=== PATIENT | male | born 1955 | race African-American/Black ===

== ENCOUNTER 2024-09-15 11:28 | Inpatient (IN) ==
[2024-09-15 12:11] LABS: Basophils # (auto) 0.06 K/uL (0.00-0.20); Basophils % (auto) 0.6 %; Eosinophils # (auto) 0.07 K/uL (0.00-0.50); Eosinophils % (auto) 0.7 %; Hemoglobin 14.3 g/dl (14.0-18.0); Immature Granulocytes # (auto) 0.04 K/uL (0.01-0.20); Immature Granulocytes % (auto) 0.4 %; Lymphocytes # (auto) 2.48 K/uL (1.20-3.40); Lymphocytes % (auto) 26.2 %; Mean Corpuscular Hemoglobin 27.5 pg (25.0-34.0); Mean Corpuscular Hgb Conc 31.8 g/dL (32.0-36.0); Mean Corpuscular Volume 86.5 fL (80.0-100.0); Mean Platelet Volume 11.3 fL (9.4-12.4); Monocytes # (auto) 0.46 K/uL (0.11-0.59); Monocytes % (auto) 4.9 %; Neutrophils # (auto) 6.35 K/uL (1.40-6.50); Neutrophils % (auto) 67.2 %; Platelet Count 240 K/uL (130-400); RDW Coefficient of Variation 14.5 % (11.5-14.5); RDW Standard Deviation 45.5 fL (36.4-46.3); White Blood Count 9.46 K/ul (4.8-10.8)
--- NOTE | 2024-09-15 12:11 | XRay Report ---
XR chest 1V portable CLINICAL HISTORY: Chest pain, nonspecific COMPARISON STUDY: No previous studies for comparison. FINDINGS: There is moderate elevation of the left hemidiaphragm. No pneumothorax or pleural effusion is present. There is no consolidation. A 2.5 cm left suprahilar nodular density is present. Cardiomed iastinal silhouette is unremarkable. There is an old left 10th rib fracture. IMPRESSION: 1. 2.5 cm left suprahilar nodular density. Nonemergent chest CT is recommended to exclude a pulmonary nodule. 2. No acute cardiopulmonary findings. 3. Moderate elevation of the left hemidiaphragm. ACT 112: Negative or not required by law. Electronically signed by: Sammy Avendano M.D. 09/15/2024 12:09 PM
[2024-09-15 12:28] LABS: Albumin Globulin Ratio 1.2 (0.9-2); Albumin Level 4.3 gm/dl (3.4-5.0); BUN Creatinine Ratio 7.7 (10-20); Bilirubin,Total 0.8 mg/dl (0.2-1.0); Calcium 9.7 mg/dl (8.6-10.3); Creatinine Clr Calc Pharmacy 61.5 ml/min; Globulin 3.7 gm/dl (2.5-4.0); Potassium 4.5 mmol/L (3.5-5.1)
[2024-09-15 12:32] LABS: Troponin I High Sensitivity 23.7 pg/ml (0-20)
[2024-09-15 12:41] LABS: Partial Thromboplastin Time 27 Seconds (21-31); Prothrombin Time 10.8 Seconds (9.0-12.0)
[2024-09-15] MEDS: ASPIRIN CHEW 324 MG PO STA (14:03)
[2024-09-15] MEDS: FAMOTIDINE 20MG IV PUSH 20 MG/5 ML SYR IV STA (14:14)
[2024-09-15] MEDS: NITROGLYCERIN SL 0.4 MG/TAB TAB SL STA (14:14)
--- NOTE | 2024-09-15 14:17 | History & Physical Report ---
<Statement entered by Isael Oakley, - 09/15/24 16:16> I have seen and examined the patient and have discussed the case with the provider above. I have reviewed the advanced practitioner's documentation, and I agree with, and take responsibility for that plan of care. Patient seen and examined while still in the ED. Chest pain has improved with nitroglycerin. Physical exam: Lungs: Clear to auscultation bilaterally CV: S1-S2 Diagnostics reviewed Second troponin significantly increased to 88.5 Personally reviewed EKG, sinus bradycardia, no definitive ST-T wave changes Based on patient's presenting symptoms and significant increase in troponin high suspicion for acute coronary syndrome/non-ST MN. Discussed plan of care as outlined below with BEV Date of Service September 15, 2024 Assessment & Plan (1) Atypical chest pain: (2) Elevated troponin: (3) Elevated blood pressure reading: Plan This is a 68-year-old male who is a current prisoner at [facility]. He reports this morning at 8 AM he was sitting watching TV whenever he developed severe precordial chest pain. Pain was initially 10 out of 10. He described it as, "an elephant on my chest." He denied any other associated symptoms including diaphoresis, shortness of breath, palpitations, nausea, vomiting, lightheadedness or dizziness. He denies ever feeling something similar in the past. Nothing seem to make the pain worse including deep breathing, lying down or leaning forward or touch. He denies any recent heavy lifting. He typically walks 2 miles daily on a flat surface. He denies developing any substernal chest pain or shortness of breath with this. He denies any history of HTN, HLD, T2DM or known family history of CAD. He is unsure of his family's past medical history. Atypical Chest Pain Elevated troponin admit to PCU for ACS r/o pt appears comfortable but still reports pain 4/10, not reproducible so doubt MSK ECG w/o ischemic change cycle troponins, obtain resting echo, a1c lipid panel pt denies hx of HTN/HLD at baseline, but will trend blood pressure give NTG x 1 now, will also give pepcid 20mg x 1 and continue BID to r/o GI etiology sx are not affected with meals, he had a muffin for breakfast and BBQ chips for dinner last evening Full dose asa given in ED Sx resolved after 1 NTG; however 2-hr trop increased to 288 pg/ml Start IV heparin and consult cardiology Abnormal CXR:2.5 cm left suprahilar nodular density. Nonemergent chest CT is recommended to exclude a pulmonary nodule. will obtain CT Chest DVT ppx: SCDS For now, if to remain hospitalized consider chemical ppx FULL CODE PCP: [facility] Dispo: admit to tele Pt was seen and examined in collaboration with Dr. Oakley, please see addendum I spent a total of 60 minutes reviewing notes, outpatient records, labs, medication, coordinating, documenting and providing care for this patient excluding time spent in the performance of separately billed services. History of Present Illness Chief Complaint: chest pain since 8am. Primary Care Provider: MATT [facility] This is a 68-year-old male who is a current prisoner at [facility]. He reports this morning at 8 AM he was sitting watching TV whenever he developed severe precordial chest pain. Pain was initially 10 out of 10. He described it as, "an elephant on my chest." He denied any other associated symptoms including diaphoresis, shortness of breath, palpitations, nausea, vomiting, lightheadedness or dizziness. He denies ever feeling something similar in the past. Nothing seem to make the pain worse including deep breathing, lying down or leaning forward or touch. He denies any recent heavy lifting. He typically walks 2 miles daily on a flat surface. He denies developing any substernal chest pain or shortness of breath with this. He denies any history of HTN, HLD, T2DM or known family history of CAD. He is unsure of his family's past medical history. He denies any recent illness, fever, chills, sweats or change in his bowel or urinary habits. He denies ever having a prior history of GERD. He has a prior hx of alcohol use and cocaine use in the 80s. In ED patient remained hemodynamically stable. He reports his chest pain has significantly improved and is currently a 4 out of 10. His CBC and CMP was generally unremarkable. His initial troponin is 23.7. His EKG was without acute ischemic change. He was ordered full dose aspirin to be given in ED. Allergies Allergy/AdvReac Type Severity Reaction Status Date / Time No Known Allergies Allergy Verified 11/01/22 07:58 Past Med/Surg History Problem List (Updated 09/15/24 @ 14:14 by Susan Watkins PA-C) Elevated blood pressure reading Elevated troponin Atypical chest pain Medical History Hyperlipidemia no meds per transferring documentation Hx of conjunctivitis Surgical History History of right cataract extraction Social History Smoking Status: Never smoker Second Hand Exposure: No; Do You Dip or Chew Tobacco: No (MATT [facility]); Hx Alcohol Use: Yes Hx Substance Use: Yes Last Used Substance Other:: many years Preferred Language: Vietnamese Communication Ability: Effective Communication Ability Comment: MATT [facility] inmate [facility] Director Required: No Beliefs That Will Affect Care: None Current Living Situation: Other Current Living Situation Comment: M[facility] Rodriguez Feels Safe at Home: Yes Assistive Devices: Glasses Review of Systems Review of Systems: All systems reviewed & are unremarkable except as noted in HPI & below Physical Exam Physical Exam: Constitutional: WD/WN, vitals as above, NAD, sitting up in bed, pleasant, conversing easily Head: Normocephalic, Atraumatic Eyes: PERRL, conjunctivae normal, anicteric sclerae ENMT: external ear and nose normal, oropharynx normal Neck: trachea midline, no thyromegaly normal visual inspection Respiratory: normal respiratory effort, lungs clear to auscultation, no wheeze, rales, rhonchi. Normal insp/exp effort, no accessory muscle use Cardiovascular: RRR, no murmur, no edema Vessels: no JVD or carotid bruit Chest: normal inspection of chest Abdomen: normal bowel sounds, soft, nontender, no hepatosplenomegaly Musculoskeletal: no cyanosis or clubbing, extremities motor strength 5/5 Skin: no rashes, warm and dry normal turgor Neurologic: PERRL, EOMI, accommodation nl, no face palsy, no dysarthria CN's II-XI intact bilaterally and moves all extremities Psychiatric: A+Ox3, euthymic affect Results & Data Results & Data Vital Signs (Past 12 Hours) Vital Signs Temp Pulse Pulse Resp BP BP Pulse Ox 09/15/24 14:03 67 19 141/84 H 98 09/15/24 12:23 97 09/15/24 12:23 58 L 18 135/86 96 09/15/24 11:38 36.8 C 74 20 156/95 H 98 O2 Del Method 09/15/24 14:03 Room Air 09/15/24 12:23 Room Air 09/15/24 12:23 Room Air 09/15/24 11:38 Room Air Laboratory Results I have independently reviewed and interpreted patient's admitting labs including CBC, CMP, trop, lipase, covid Diagnostic Findings Chest X-Ray 09/15/24 11:51 XR chest 1V portable CLINICAL HISTORY: Chest pain, nonspecific COMPARISON STUDY: No previous studies for comparison. FINDINGS: There is moderate elevation of the left hemidiaphragm. No pneumothorax or pleural effusion is present. There is no consolidation. A 2.5 cm left suprahilar nodular density is present. Cardiomediastinal silhouette is unremarkable. There is an old left 10th rib fracture. IMPRESSION: 1. 2.5 cm left suprahilar nodular density. Nonemergent chest CT is recommended to exclude a pulmonary nodule. 2. No acute cardiopulmonary findings. 3. Moderate elevation of the left hemidiaphragm. ACT 112: Negative or not required by law. Electronically signed by: Sammy Avendano M.D. 09/15/2024 12:09 PM Medications Administered Medication List Discontinued Medications Aspirin (Aspirin Chew 324 Mg) 324 mg PO NOW STA Stop: 09/15/24 13:44 Last Admin: 09/15/24 14:03 Dose: 324 mg Documented By: GGG ECG Additional Comments: I have independently reviewed and interpreted patient's admitting EKG which rev ealed: 65 bpm NSR qtc 455ms, no st or t wave change COVID-19 Results Results COVID-19 Adm Lab Results: RBC 5.20 M/uL (4.70-6.10) 09/15/24 WBC 9.46 K/ul (4.8-10.8) 09/15/24 Hgb 14.3 g/dl (14.0-18.0) 09/15/24 Hct 45.0 % (42.0-52.0) 09/15/24 Plt Count 240 K/uL (130-400) 09/15/24 Neutrophils (%) (Auto) 67.2 % 09/15/24 Lymphocytes (%) (Auto) 26.2 % 09/15/24 Monocytes # (Auto) 0.46 K/uL (0.11-0.59) 09/15/24 Eosinophils # (Auto) 0.07 K/uL (0.00-0.50) 09/15/24 Immature Granulocyte % (Auto) 0.4 % 09/15/24 Neutrophils # (Auto) 6.35 K/uL (1.40-6.50) 09/15/24 Lymphocytes # (Auto) 2.48 K/uL (1.20-3.40) 09/15/24 Monocytes # (Auto) 0.46 K/uL (0.11-0.59) 09/15/24 Eosinophils # (Auto) 0.07 K/uL (0.00-0.50) 09/15/24 Basophils # (Auto) 0.06 K/uL (0.00-0.20) 09/15/24 Immature Granulocyte # (Auto) 0.04 K/uL (0.01-0.20) 4 Na 139 mmol/L (136-145) 09/15/24 K 4.5 mmol/L (3.5-5.1) 09/15/24 Cl 106 mmol/L (98-107) 09/15/24 CO2 28 mmol/L (21-32) 09/15/24 Anion Gap 5 (3-11) 09/15/24 BUN 10 mg/dl (6-23) 09/15/24 Creatinine 1.30 mg/dl (0.6-1.4) 09/15/24 BUN/Creatinine Ratio 7.7 (10-20) L 09/15/24 Glucose Level 98 mg/dl (70-99(Fasting)) 09/15/24 Ca 9.7 mg/dl (8.6-10.3) 09/15/24 Total Bilirubin 0.8 mg/dl (0.2-1.0) 09/15/24 AST/SGOT 15 U/L (13-39) 09/15/24 ALT/SGPT 6 U/L (7-52) L 09/15/24 Alkaline Phosphatase 43 U/L (34-104) 09/15/24 Total Protein 8.0 gm/dl (6.0-8.3) 09/15/24 Albumin 4.3 gm/dl (3.4-5.0) 09/15/24 Globulin 3.7 gm/dl (2.5-4.0) 09/15/24 Albumin/Globulin Ratio 1.2 (0.9-2) 09/15/24 PTT 27 Seconds (21-31) 09/15/24 INR 1.0 (0.9-1.1) 09/15/24 SARS-CoV-2, RNA, NAAT NEGATIVE (NEGATIVE) 09/15/24 Chest X-Ray 09/15/24 Code Status & VTE Plan Code Status FULL CODE VTE Prophylaxis Plan VTE Prophylaxis will be ordered: No
[2024-09-15] MEDS ORDERED: ONDANSETRON INJ 2 MG/ML 2 ML VIAL IV PRN (14:43)
[2024-09-15] MEDS ORDERED: ACETAMINOPHEN 325 MG TAB PO PRN (14:43)
[2024-09-15] MEDS ORDERED: ALUMINUM/MAGNESIUM SUSP 30 ML UDC PO PRN (14:43)
--- NOTE | 2024-09-15 15:07 | Electrocardiogram Report ---
Test Reason : Blood Pressure : */* mmHG Vent. Rate : 65 BPM Atrial Rate : 65 BPM P-R Int : 130 ms QRS Dur : 80 ms QT Int : 428 ms P-R-T Axes : 72 39 63 degrees QTcB Int : 445 ms Normal sinus rhythm Normal ECG No previous ECGs available Confirmed by Moo Cortez ([id number]) on 09/15/2024 3:07:16 PM Referred By: [facility] Confirmed By: Moo Cortez
--- NOTE | 2024-09-15 15:26 | Emergency Department Note ---
Impression & Plan NSTEMI (non-ST elevated myocardial infarction), Elevated troponin, Chest pain due to CAD ED Provider Note NAME: MAME GRAJEDA MCNEAR AGE: 68 SEX: M : 1955 ARRIVES VIA: Walk-In INFORMANT: Patient, ED PROVIDER(S): Jacob Suresh MD CHIEF COMPLAINT: Chest pain HPI: This a 68-year-old male presented for left-sided chest pain. Patient notes that pain began this morning feels like a pressure-like sensation in his midsternal/left side of his chest. Denies any shortness of breath, radiation of pain. No nausea, vomiting, diarrhea. Never happened before. No history of CAD or stenting. ROS: See above HPI for pertinent positives & negatives. A total of 10 systems reviewed and were otherwise negative. PAST MEDICAL HISTORY: See Below PAST SURGICAL HISTORY: See Below FAMILY HISTORY: See Below SOCIAL HISTORY: See Below HOME MEDICATIONS: See Below ALLERGIES: See Below VITALS: See Below PHYSICAL EXAMINATION: General: resting comfortably in no acute distress Head: Normocephalic and atraumatic Eyes: Normal inspection, extraocular muscles intact Ear, nose, throat: Normal external exam Neck: Normal range of motion Respiratory: lungs clear to auscultation bilaterally Cardiovascular: Regular rate/rhythm, no murmur GI: soft, nontender, no guarding or rebound Extremities: nontender, moves all extremities Neuro: The patient awake and alert, appropriately conversive, no focal deficits, symmetric faces Skin: Warm, dry, and intact MEDICAL DECISION MAKING: This is a 68-year-old male presenting for left-sided chest pain. Patient has persistent left-sided chest pain, currently still coming on. Minor at this time we will order aspirin. -ECG independently interpreted by me with normal sinus rhythm, rate of 65, normal axis, normal AK, normal QRS, normal QTc, no ST segment elevations consistent with STEMI criteria -Patient initial troponin is currently elevated in the low 20s. Due to this elevated troponin, current chest pain, will admit for further cardiac rule out. -Discussed with Miranda for admission. -Patient second troponin does come back elevated at 288. Let admitting team now. Differential diagnosis: ACS, PE, NSTEMI Independent History obtained from: [facility] guards Diagnostics interpreted by me: ECG: See above Cardiac Monitoring: An order was placed for continuous cardiac monitoring. The monitor shows a rate of 57 sinus rhythm. Past Med/Surg History Problem List (Updated 09/15/24 @ 19:00 by Jacob Suresh MD) Chest pain due to CAD (Acute) NSTEMI (non-ST elevated myocardial infarction) (Acute) Precordial chest pain Elevated blood pressure reading Elevated troponin (Acute) Atypical chest pain Medical History Hyperlipidemia no meds per transferring documentation Hx of conjunctivitis Surgical History History of right cataract extraction Social History Smoking Status: Never smoker Second Hand Exposure: No; Do You Dip or Chew Tobacco: No ([facility]); Hx Alcohol Use: Yes Hx Substance Use: Yes Last Used Substance Other:: many years Preferred Language: Chadian Communication Ability: Effective Communication Ability Comment: MATT [facility] inmate 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: No Beliefs That Will Affect Care: None Current Living Situation: Other Current Living Situation Comment: [facility] Other Information That Helps Us Care for You: No Feels Safe at Home: Yes Safety Concerns: Feels Safe At This Time Assistive Devices: Glasses Allergies Allergies Allergy/AdvReac Type Severity Reaction Status Date / Time No Known Allergies Allergy Verified 08/11/22 07:58 Home Meds Home Medications Medication Instructions Recorded Confirmed No Known Home Medications 09/15/24 09/15/24 Results & Data (ED) Vital Signs Vital Signs - 24 hr 09/15/24 11:38 09/15/24 12:23 09/15/24 12:23 Temperature 36.8 C Temperature Source Temporal Artery Scan Pulse Rate 74 Pulse Rate [Apical] 58 L Pulse Rhythm [Apical] Regular Pulse Strength [Apical] Normal Respiratory Rate 20 18 Respiratory Effort / Characteristics Non-Labored Spontaneous Non-Labored Spontaneous Respiratory Depth Normal Normal Respiratory Pattern Regular Regular Blood Pressure 156/95 H Blood Pressure [Left Arm] 135/86 Blood Pressure Mean 115 Blood Pressure Mean [Left Arm] 102 Pulse Oximetry 98 96 97 Oxygen Delivery Method Room Air Room Air Room Air Sepsis Recent Fever Within 48 Hours No Sepsis New/Unexplained Change in Mental Status No Sepsis Action Taken by Nursing No Action Required 09/15/24 14:03 Temperature Temperature Source Pulse Rate Pulse Rate [Apical] 67 Pulse Rhythm [Apical] Regular Pulse Strength [Apical] Normal Respiratory Rate 19 Respiratory Effort / Characteristics Non-Labored Spontaneous Respiratory Depth Normal Respiratory Pattern Regular Blood Pressure Blood Pressure [Left Arm] 141/84 H Blood Pressure Mean Blood Pressure Mean [Left Arm] 103 Pulse Oximetry 98 Oxygen Delivery Method Room Air Sepsis Recent Fever Within 48 Hours Sepsis New/Unexplained Change in Mental Status Sepsis Action Taken by Nursing Laboratory Data 09/15/24 11:52 09/15/24 11:52 Lab Results 09/15/24 09/15/24 09/15/24 Range/Units 11:52 11:56 14:05 WBC 9.46 (4.8-10.8) K/ul RBC 5.20 (4.70-6.10) M/uL Hgb 14.3 (14.0-18.0) g/dl Hct 45.0 (42.0-52.0) % MCV 86.5 (80.0-100.0) fL MCH 27.5 (25.0-34.0) pg MCHC 31.8 L (32.0-36.0) g/dL RDW Std Deviation 45.5 (36.4-46.3) fL RDW Coeff of Kirill 14.5 (11.5-14.5) % Plt Count 240 (130-400) K/uL MPV 11.3 (9.4-12.4) fL Immature Gran % (Auto) 0.4 % Neut % (Auto) 67.2 % Lymph % (Auto) 26.2 % [place] % (Auto) 4.9 % Eos % (Auto) 0.7 % Baso % (Auto) 0.6 % Neut # (Auto) 6.35 (1.40-6.50) K/uL Lymph # (Auto) 2.48 (1.20-3.40) K/uL [place] # (Auto) 0.46 (0.11-0.59) K/uL Eos # (Auto) 0.07 (0.00-0.50) K/uL Baso # (Auto) 0.06 (0.00-0.20) K/uL Immature Gran # (Auto) 0.04 (0.01-0.20) K/uL PT 10.8 (9.0-12.0) Seconds INR 1.0 (0.9-1.1) APTT 27 (21-31) Seconds PTT Ratio 1.0 Sodium 139 (136-145) mmol/L Potassium 4.5 (3.5-5.1) mmol/L Chloride 106 (98-107) mmol/L Carbon Dioxide 28 (21-32) mmol/L Anion Gap 5 (3-11) BUN 10 (6-23) mg/dl Creatinine 1.30 (0.6-1.4) mg/dl Est Cr Clr Drug Dosing 61.5 ml/min eGFR 59.84 BUN/Creatinine Ratio 7.7 L (10-20) Glucose 98 (70-99(Fasting)) mg/dl Calcium 9.7 (8.6-10.3) mg/dl Total Bilirubin 0.8 (0.2-1.0) mg/dl AST 15 (13-39) U/L ALT 6 L (7-52) U/L Alkaline Phosphatase 43 (34-104) U/L Troponin I High Sens 23.7 H 288.5 H* D (0-20) pg/ml Total Protein 8.0 (6.0-8.3) gm/dl Albumin 4.3 (3.4-5.0) gm/dl Globulin 3.7 (2.5-4.0) gm/dl Albumin/Globulin Ratio 1.2 (0.9-2) Lipase 31 (11-82) U/L SARS-CoV-2, RNA, NAAT NEGATIVE (NEGATIVE) Administered Medications Heparin Sodium/Dextrose (Heparin Sodium/Dextrose) 25,000 units in 500 mls @ 30 mls/hr IV .[id number] [facility]; Protocol Stop: 10/15/24 15:44 Last Admin: 09/15/24 16:19 Dose: 1,500 units/hr, 30 mls/hr Documented By: CORINNE Co-signed By: ELVIS Discontinued Medications Aspirin (Aspirin Chew 324 Mg) 324 mg PO NOW STA Stop: 09/15/24 13:44 Last Admin: 09/15/24 14:03 Dose: 324 mg Documented By: ELIZABETH Heparin Sodium (Porcine) (Heparin Sod (Porcine) 1000 Unit/Ml) 7,000 units IV 1600 ONE Stop: 09/15/24 16:01 Last Admin: 09/15/24 16:19 Dose: 7,000 units Documented By: CORINNE Co-signed By: ELVIS Heparin Sodium/Dextrose (Heparin Iv Adult Wt-Based Standard W/ Initial Bolus Protocol) 1 each IV NOW STA; Protocol Stop: 09/15/24 14:54 Last Admin: 09/15/24 16:25 Dose: 1 each Documented By: CORINNE Famotidine (Pepcid 20mg Iv Push) 20 mg in 5 mls @ 2.5 mls/min IV NOW STA Stop: 09/15/24 14:04 Last Admin: 09/15/24 14:14 Dose: 2.5 mls/min Documented By: ELIZABETH Nitroglycerin (Nitroglycerin Sl 0.4 Mg/Tab Tab) 0.4 mg SL NOW STA Stop: 09/15/24 14:04 Last Admin: 09/15/24 14:14 Dose: 0.4 mg Documented By: ELIZABETH Imaging Data Radiologist's Impression: Chest X-Ray 09/15/24 11:51 XR chest 1V portable CLINICAL HISTORY: Chest pain, nonspecific COMPARISON STUDY: No previous studies for comparison. FINDINGS: There is moderate elevation of the left hemidiaphragm. No pneumothorax or pleural effusion is present. There is no consolidation. A 2.5 cm left suprahilar nodular density is present. Cardiomediastinal silhouette is unremarkable. There is an old left 10th rib fracture. IMPRESSION: 1. 2.5 cm left suprahilar nodular density. Nonemergent chest CT is recommended to exclude a pulmonary nodule. 2. No acute cardiopulmonary findings. 3. Moderate elevation of the left hemidiaphragm. ACT 112: Negative or not required by law. Electronically signed by: Sammy Avendano M.D. 09/15/2024 12:09 PM Discharge Plan Visit Data Chief Complaint: Hypertension Stated Complaint: CHEST TIGHTNESS, HYPERTENSION ED Provider: Jacob Suresh Discharge Problem: NSTEMI (non-ST elevated myocardial infarction), Elevated troponin, Chest pain due to CAD Patient Disposition: Admitted As Inpatient Discharge Instructions Interventions: ED Discharge Assessment Last Done: 09/15/24 14:23
--- NOTE | 2024-09-15 15:56 | Cardiology Consultation ---
Date of Consultation September 15, 2024 Assessment & Plan (1) Elevated troponin: (2) Precordial chest pain: Plan 68-year-old male without prior history of cardiac disease who developed chest pain substernally at rest. Initial EKG normal elevated troponins consistent with non-ST segment elevation myocardial infarction. Agree with anticoagulation with heparin, aspirin. Maintain telemetry The echocardiogram to be formally reviewed but on preliminary review normal wall motion. Further recommendations as clinical course progresses History of Present Illness Reason for Consultation: Chest pain, elevated Troponin [facility] Attending Physician: Isael Oakley DO History of Present Illness Patient is a 68-year-old male brought few half-way via prisoner who this morning while sitting watching television developed substernal chest pain severe, 10 out of 10 "elephant on my chest. Symptoms initially improved but still maintained until ER presentation. Symptoms relieved with sublingual nitroglycerin. No prior history of hypertension, diabetes mellitus, angina, congestive heart failure. No history of valvular heart disease. Usually very physically active walking 2 miles per day without difficulty. No recent fevers chills infections. No history of bleeding issues appetite and weight are stable. Not previously on medications or aspirin Currently pain-free Initial EKG normal Second troponin elevated Allergies Allergy/AdvReac Type Severity Reaction Status Date / Time No Known Allergies Allergy Verified 08/11/22 07:58 Patient History Medical History Hyperlipidemia no meds per transferring documentation Hx of conjunctivitis Surgical History History of right cataract extraction Social History Smoking Status: Never smoker Second Hand Exposure: No; Do You Dip or Chew Tobacco: No (MATT Rodriguez); Hx Alcohol Use: Yes Hx Substance Use: Yes Last Used Substance Other:: many years Preferred Language: Somali Communication Ability: Effective Communication Ability Comment: MATT sinclair inmate Associate Team Physician Required: No Beliefs That Will Affect Care: None Current Living Situation: Other Current Living Situation Comment: MATT Rodriguez Other Information That Helps Us Care for You: No Feels Safe at Home: Yes Safety Concerns: Feels Safe At This Time Assistive Devices: Glasses Review of Systems Review of Systems: All systems reviewed & are unremarkable except as noted in HPI & below Physical Exam Constitutional: WD/WN, vitals as above no acute distress Eyes: PERRL, conjunctivae normal, anicteric sclerae ENMT: external ear and nose normal, oropharynx normal Neck: trachea midline, no thyromegaly Respiratory: normal respiratory effort, lungs clear to auscultation Cardiovascular: RRR, no murmur, no edema Vessels: radial pulses present; no JVD Extremities: no edema Gastrointestinal (Abdomen): normal bowel sounds, soft, nontender, no hepatosplenomegaly Musculoskeletal: no cyanosis or clubbing, extremities motor strength 5/5 Results & Data Vital Signs (Past 12 Hours) Vital Signs Temp Pulse Pulse Resp BP BP BP 09/15/24 14:44 36.7 C 57 L 16 137/78 09/15/24 14:22 72 09/15/24 14:03 67 19 141/84 H 09/15/24 12:23 09/15/24 12:23 58 L 18 135/86 09/15/24 11:38 36.8 C 74 20 156/95 H Pulse Ox O2 Del Method 09/15/24 14:44 97 Room Air 09/15/24 14:22 09/15/24 14:03 98 Room Air 09/15/24 12:23 97 Room Air 09/15/24 12:23 96 Room Air 09/15/24 11:38 98 Room Air Laboratory Results Laboratory Results - last 24 hr 09/15/24 09/15/24 09/15/24 11:52 11:56 14:05 WBC 9.46 RBC 5.20 Hgb 14.3 Hct 45.0 MCV 86.5 MCH 27.5 MCHC 31.8 L RDW Std Deviation 45.5 RDW Coeff of Kirill 14.5 Plt Count 240 MPV 11.3 Immature Gran % (Auto) 0.4 Neut % (Auto) 67.2 Lymph % (Auto) 26.2 [place] % (Auto) 4.9 Eos % (Auto) 0.7 Baso % (Auto) 0.6 Neut # (Auto) 6.35 Lymph # (Auto) 2.48 [place] # (Auto) 0.46 Eos # (Auto) 0.07 Baso # (Auto) 0.06 Immature Gran # (Auto) 0.04 PT 10.8 INR 1.0 APTT 27 PTT Ratio 1.0 Sodium 139 Potassium 4.5 Chloride 106 Carbon Dioxide 28 Anion Gap 5 BUN 10 Creatinine 1.30 Est Cr Clr Drug Dosing 61.5 eGFR 59.84 BUN/Creatinine Ratio 7.7 L Glucose 98 Calcium 9.7 Total Bilirubin 0.8 AST 15 ALT 6 L Alkaline Phosphatase 43 Troponin I High Sens 23.7 H 288.5 H* D Total Protein 8.0 Albumin 4.3 Globulin 3.7 Albumin/Globulin Ratio 1.2 Lipase 31 Nasal Screen MRSA (PCR) SARS-CoV-2, RNA, NAAT NEGATIVE 09/15/24 15:50 WBC RBC Hgb Hct MCV MCH MCHC RDW Std Deviation RDW Coeff of Kirill Plt Count MPV Immature Gran % (Auto) Neut % (Auto) Lymph % (Auto) [place] % (Auto) Eos % (Auto) Baso % (Auto) Neut # (Auto) Lymph # (Auto) [place] # (Auto) Eos # (Auto) Baso # (Auto) Immature Gran # (Auto) PT INR APTT PTT Ratio Sodium Potassium Chloride Carbon Dioxide Anion Gap BUN Creatinine Est Cr Clr Drug Dosing eGFR BUN/Creatinine Ratio Glucose Calcium Total Bilirubin AST ALT Alkaline Phosphatase Troponin I High Sens Total Protein Albumin Globulin Albumin/Globulin Ratio Lipase Nasal Screen MRSA (PCR) Pending SARS-CoV-2, RNA, NAAT Diagnostic Findings Chest x-ray and CT scan of the chest elevated left hemidiaphragm, coronary calcifications notable
--- NOTE | 2024-09-15 15:58 | CT Scan Report ---
CT OF THE CHEST WITHOUT IV CONTRAST CLINICAL HISTORY: Chest pain. COMPARISON STUDY: Chest radiograph performed earlier today. CT DOSE: 499.66 mGy.cm TECHNIQUE: Axial images of the chest were obtained without IV contrast. Images were reviewed in the axial, sagittal, and coronal planes. IV contrast was not administered for this examination. Automat ed exposure control was utilized for the study. A dose lowering technique was utilized adhering to t he principles of ALARA. FINDINGS: No enlarged axillary, mediastinal or hilar lymph nodes are present. The size of the heart is normal. There is no pericardial effusion. There is moderate coronary artery calcification. The lef t suprahilar abnormality on chest radiograph performed earlier today was artifactual. This is due to pulmonary vessels. Moderate elevation of the left hemidiaphragm is noted. Associated subpleural left lower lobe opacity represents atelectasis. No consolidation is present to suggest pneumonia. There ar e no pulmonary nodules. There is no pneumothorax or pleural effusion. No fractures are identified wit hin the bony thorax. Visualized portions of the upper abdomen are unremarkable on unenhanced exam. IMPRESSION: 1. No acute intrathoracic findings. 2. Moderate elevation of the left hemidiaphragm. Associated subpleural left lower lobe opacity repres ents atelectasis. 3. The left suprahilar abnormality on chest radiograph performed earlier today was artifactual. ACT 112: Negative or not required by law. Electronically signed by: Sammy Avendano M.D. 09/15/2024 3:57 PM
[2024-09-15] MEDS ORDERED: HEPARIN SOD (PORCINE) 1000 UNIT/ML IV ONE (16:00)
[2024-09-15] MEDS: HEPARIN SODIUM/DEXTROSE 25,000 UNITS/500 ML BAG IV SCH (16:19)
[2024-09-15] MEDS: HEPARIN SOD (PORCINE) 1000 UNIT/ML IV ONE (16:19)
[2024-09-15] MEDS: Heparin IV Adult Wt-Based Standard w/ INITIAL Bolus Protocol IV STA (16:25)
[2024-09-15] MEDS ORDERED: MELATONIN 3 MG TAB PO PRN (21:00)
[2024-09-15] MEDS: NITROGLYCERIN SL 0.4 MG/TAB TAB ONE (21:18)
[2024-09-15] MEDS: FAMOTIDINE 20 MG TAB PO SCH (21:25)
[2024-09-15 23:37] LABS: ANTI-Xa, UFH(UnfractionatedHep 1.49 IU/ml (0.3-0.7)
[2024-09-16 01:46] LABS: Hematocrit (blood only) 41.1 % (42.0-52.0); Hemoglobin 13.2 g/dl (14.0-18.0); Mean Corpuscular Hemoglobin 27.8 pg (25.0-34.0); Mean Corpuscular Hgb Conc 32.1 g/dL (32.0-36.0); Mean Corpuscular Volume 86.7 fL (80.0-100.0); Mean Platelet Volume 11.3 fL (9.4-12.4); Platelet Count 203 K/uL (130-400); RDW Coefficient of Variation 14.5 % (11.5-14.5); RDW Standard Deviation 45.9 fL (36.4-46.3); Red Blood Count 4.74 M/uL (4.70-6.10); White Blood Count 9.17 K/ul (4.8-10.8)
[2024-09-16 02:05] LABS: BUN Creatinine Ratio 10.2 (10-20); Calcium 9.1 mg/dl (8.6-10.3); Chol HDL Ratio 4.2 (0-5); Creatinine Clr Calc Pharmacy 58.3 ml/min; Potassium 4.6 mmol/L (3.5-5.1)
[2024-09-16 02:19] LABS: ANTI-Xa, UFH(UnfractionatedHep 0.99 IU/ml (0.3-0.7)
[2024-09-16 03:03] LABS: ANTI-Xa, UFH(UnfractionatedHep 0.68 IU/ml (0.3-0.7)
--- NOTE | 2024-09-16 07:07 | Hospitalist Progress Note ---
Date of Service September 16, 2024 Assessment & Plan (1) Atypical chest pain: (2) Elevated troponin: (3) Elevated blood pressure reading: Plan Mr. Zapata is a 68-year-old male who is a current prisoner at [facility] with reportedly no medical history who is admitted for severe chest pain that developed the morning of 09/15. Initial troponin at 23.7, however, uptrending to now 5186.4 as of this am. Repeat downtrending Patient on IV heparin at this time. Patient with recurrence of pain: repeat labs ordered EKG stable, patient very calm, nonanxious, resting in bed--exam not congruent with reported discomfort If troponin increasing will call Heart Alert; however, without increasing Troponin, stable EKG/vitals, and current clinical exam, will continue conservative measures. #NSTEMI #Atypical Chest Pain admit to PCU for ACS r/o pt appears comfortable but still reports pain 4/10, not reproducible so doubt MSK ECG w/o ischemic change ECHO with EF 60-65%, no RWMA A1C 5.7% pt denies hx of HTN/HLD at baseline, but will trend blood pressure give NTG x 1 now, will also give pepcid 20mg x 1 and continue BID to r/o GI etiology sx are not affected with meals, he had a muffin for breakfast and BBQ chips for dinner last evening Full dose asa given in ED Sx resolved after 1 NTG; however 2-hr trop increased to 288 pg/ml Continue heparin Contuinue ASA Continue nitro paste q6h LDL 109, Total 168,continue atorvastatin 40mg daily #Prediabetes A1C 5.7% plan to certified alcohol and drug counselor on healthy dietary choices #Abnormal CXR:2.5 cm left suprahilar nodular density. Nonemergent chest CT is recommended to exclude a pulmonary nodule: CXR was artifact, no nodules present DVT ppx: SCDS For now, if to remain hospitalized consider chemical ppx FULL CODE PCP: [facility] Dispo: admit to tele Admission and Anticipated Discharge Date Admission Date: September 15, 2024 Subjective Evaluated this am with some chest pain; reevaluated at bedside with chest pain this afternoon---however, sitting calm and upright....though reporting 10/10 no diaphoresis, radiation of symptoms, nausea VS stable, EKG reviewed no changes noted Patient with nitro, denies relief---but again, very calm and resting in bed Physical Exam Constitutional: WD/WN, vitals as above Respiratory: normal respiratory effort, lungs clear to auscultation Cardiovascular: RRR, no murmur, no edema Gastrointestinal (Abdomen): normal bowel sounds, soft, nontender, no hepatosplenomegaly Results & Data Results & Data Vital Signs (Past 12 Hours) Vital Signs Temp Pulse Pulse Resp BP Pulse Ox O2 Del Method 09/16/24 04:25 36.3 C L 51 L 17 107/68 99 Nasal Cannula 09/15/24 23:03 Nasal Cannula 09/15/24 22:51 36.4 C L 46 L 16 128/70 99 Room Air 09/15/24 22:05 121/73 09/15/24 21:54 49 L 09/15/24 21:28 134/75 95 Nasal Cannula 09/15/24 21:21 54 L 136/78 96 Nasal Cannula 09/15/24 21:08 126/71 Room Air 09/15/24 19:32 36.7 C 49 L 18 134/79 97 Room Air O2 Flow Rate 09/16/24 04:25 2 09/15/24 23:03 2 09/15/24 22:51 09/15/24 22:05 09/15/24 21:54 09/15/24 21:28 2 09/15/24 21:21 2 09/15/24 21:08 09/15/24 19:32 Laboratory Results Short CBC 09/15/24 09/16/24 Range/Units 11:52 01:21 WBC 9.46 9.17 (4.8-10.8) K/ul Hgb 14.3 13.2 L (14.0-18.0) g/dl Hct 45.0 41.1 L (42.0-52.0) % Plt Count 240 203 (130-400) K/uL BMP 09/15/24 09/16/24 11:52 01:21 Sodium 139 139 Potassium 4.5 4.6 Chloride 106 107 Carbon Dioxide 28 28 BUN 10 14 Creatinine 1.30 1.37 Glucose 98 101 H Calcium 9.7 9.1 Liver Function 09/15/24 Range/Units 11:52 Total Bilirubin 0.8 (0.2-1.0) mg/dl AST 15 (13-39) U/L ALT 6 L (7-52) U/L Alkaline Phosphatase 43 (34-104) U/L Albumin 4.3 (3.4-5.0) gm/dl Medications Administered Home Medications Medication Instructions Recorded Confirmed Last Taken No Known Home Medications 09/15/24 09/15/24 Unknown Active Medications Generic Name Dose Route Start Last Admin Trade Name Freq PRN Reason Stop Dose Admin Famotidine 20 mg 09/15/24 21:00 09/15/24 21:25 Famotidine 20 Mg Tab PO 10/15/24 20:59 20 mg BID SIMON Administration Heparin Sodium/Dextrose 25,000 units in 500 mls @ 22 mls/hr 09/15/24 15:45 09/16/24 07:01 Heparin Sodium/Dextrose IV 10/15/24 15:44 1,100 units/hr .[id number] SIMON 22 mls/hr Titration Protocol 1,100 UNITS/HR
[2024-09-16 07:09] LABS: Estimated Average Glucose 117 mg/dl; Hemoglobin A1C 5.7 % (4.5-5.6)
[2024-09-16 07:31] LABS: Magnesium 2.1 mg/dl (1.7-2.4)
[2024-09-16 07:45] LABS: Troponin I High Sensitivity 3985.9 pg/ml (0-20)
[2024-09-16] MEDS: ASPIRIN 81 MG ECTAB PO SCH (07:47)
[2024-09-16] MEDS: ATORVASTATIN 40 MG TAB PO SCH (07:47)
--- NOTE | 2024-09-16 08:45 | Electrocardiogram Report ---
Test Reason : Blood Pressure : */* mmHG Vent. Rate : 54 BPM Atrial Rate : 54 BPM P-R Int : 152 ms QRS Dur : 70 ms QT Int : 458 ms P-R-T Axes : 67 44 70 degrees QTcB Int : 434 ms Poor data quality, interpretation may be adversely affected Sinus bradycardia Nonspecific T wave abnormality Anterior leads Abnormal ECG When compared with ECG of 15-Sep-2024 11:46, No significant change was found Confirmed by Alejandro Gillespie ([id number]) on 09/16/2024 8:45:34 AM Referred By: [facility] Confirmed By: Alejandro Gillespie
--- NOTE | 2024-09-16 08:59 | Electrocardiogram Report ---
Test Reason : Blood Pressure : */* mmHG Vent. Rate : 55 BPM Atrial Rate : 55 BPM P-R Int : 142 ms QRS Dur : 78 ms QT Int : 474 ms P-R-T Axes : 73 57 85 degrees QTcB Int : 453 ms Sinus bradycardia Borderline ECG When compared with ECG of 15-Sep-2024 15:51, Nonspecific T wave abnormality Anterior leads no longer present Confirmed by Alejandro Gillespie ([id number]) on 09/16/2024 8:58:51 AM Referred By: [facility] Confirmed By: Alejadnro Gillespie
--- NOTE | 2024-09-16 10:19 | Cardiology Progress Note ---
Date of Service September 16, 2024 Assessment & Plan (1) Elevated troponin: (2) Precordial chest pain: (3) NSTEMI (non-ST elevated myocardial infarction): Plan 68-year-old male without prior history of cardiac disease who developed chest pain substernally at rest. Initial EKG normal elevated troponins consistent with non-ST segment elevation myocardial infarction. Agree with anticoagulation with heparin, aspirin. Maintain telemetry The echocardiogram to be formally reviewed but on preliminary review normal wall motion. Further recommendations as clinical course progresses 09/16/2024 Presentation consistent with non-ST segment elevation myocardial infarction with significant rise in troponins. EKGs without injury pattern. Patient appropriately anticoagulated with IV heparin Beta-sheila contraindicated secondary to resting bradycardia Will add topical nitrates to regimen Plan diagnostic coronary angiography Wednesday morning unless patient develops unstable symptoms. May resume diet in interim Admission and Anticipated Discharge Date Admission Date: September 15, 2024 Subjective Patient was seen and personally examined. Chart, medications, telemetry reviewed. Brief chest discomfort earlier this morning transient. No further sustained chest pain or discomfort. No tachypalpitations dizziness or lightheadedness. No arrhythmias on telemetry. No bleeding issues on anticoagulation. Review of Systems Review of Systems: All systems reviewed & are unremarkable except as noted in Subjective Physical Exam Constitutional: WD/WN, vitals as above no acute distress Eyes: PERRL, conjunctivae normal, anicteric sclerae ENMT: external ear and nose normal, oropharynx normal Neck: trachea midline, no thyromegaly Respiratory: normal respiratory effort, lungs clear to auscultation Cardiovascular: RRR, no murmur, no edema Vessels: radial pulses present; no JVD Extremities: no edema Gastrointestinal (Abdomen): normal bowel sounds, soft, nontender, no hepatosplenomegaly Musculoskeletal: no cyanosis or clubbing, extremities motor strength 5/5 Results & Data Vital Signs (Past 12 Hours) Vital Signs Temp Pulse Pulse Resp BP Pulse Ox O2 Del Method 09/16/24 07:50 36.4 C L 54 L 16 154/90 H 100 Nasal Cannula 09/16/24 07:00 65 09/16/24 04:25 36.3 C L 51 L 17 107/68 99 Nasal Cannula 09/15/24 23:03 Nasal Cannula 09/15/24 22:51 36.4 C L 46 L 16 128/70 99 Room Air O2 Flow Rate 09/16/24 07:50 2 09/16/24 07:00 09/16/24 04:25 2 09/15/24 23:03 2 09/15/24 22:51 Laboratory Results Laboratory Results - last 24 hr 09/15/24 09/15/24 09/15/24 11:52 11:56 14:05 WBC 9.46 RBC 5.20 Hgb 14.3 Hct 45.0 MCV 86.5 MCH 27.5 MCHC 31.8 L RDW Std Deviation 45.5 RDW Coeff of Kirill 14.5 Plt Count 240 MPV 11.3 Immature Gran % (Auto) 0.4 Neut % (Auto) 67.2 Lymph % (Auto) 26.2 [place] % (Auto) 4.9 Eos % (Auto) 0.7 Baso % (Auto) 0.6 Neut # (Auto) 6.35 Lymph # (Auto) 2.48 [place] # (Auto) 0.46 Eos # (Auto) 0.07 Baso # (Auto) 0.06 Immature Gran # (Auto) 0.04 PT 10.8 INR 1.0 APTT 27 PTT Ratio 1.0 Heparin Anti-Xa, Unfract Sodium 139 Potassium 4.5 Chloride 106 Carbon Dioxide 28 Anion Gap 5 BUN 10 Creatinine 1.30 Est Cr Clr Drug Dosing 61.5 eGFR 59.84 BUN/Creatinine Ratio 7.7 L Glucose 98 Estimat Average Glucose Hemoglobin A1c Calcium 9.7 Magnesium Total Bilirubin 0.8 AST 15 ALT 6 L Alkaline Phosphatase 43 Troponin I High Sens 23.7 H 288.5 H* D Total Protein 8.0 Albumin 4.3 Globulin 3.7 Albumin/Globulin Ratio 1.2 Triglycerides Cholesterol LDL Cholesterol, Calc VLDL Cholesterol, Calc HDL Cholesterol Cholesterol/HDL Ratio Lipase 31 Nasal Screen MRSA (PCR) SARS-CoV-2, RNA, NAAT NEGATIVE 09/15/24 09/15/24 09/15/24 15:50 20:05 22:37 WBC RBC Hgb Hct MCV MCH MCHC RDW Std Deviation RDW Coeff of Kirill Plt Count MPV Immature Gran % (Auto) Neut % (Auto) Lymph % (Auto) [place] % (Auto) Eos % (Auto) Baso % (Auto) Neut # (Auto) Lymph # (Auto) [place] # (Auto) Eos # (Auto) Baso # (Auto) Immature Gran # (Auto) PT INR APTT PTT Ratio Heparin Anti-Xa, Unfract 1.49 H* Sodium Potassium Chloride Carbon Dioxide Anion Gap BUN Creatinine Est Cr Clr Drug Dosing eGFR BUN/Creatinine Ratio Glucose Estimat Average Glucose Hemoglobin A1c Calcium Magnesium Total Bilirubin AST ALT Alkaline Phosphatase Troponin I High Sens 3546.8 H* D Total Protein Albumin Globulin Albumin/Globulin Ratio Triglycerides Cholesterol LDL Cholesterol, Calc VLDL Cholesterol, Calc HDL Cholesterol Cholesterol/HDL Ratio Lipase Nasal Screen MRSA (PCR) Negative SARS-CoV-2, RNA, NAAT 09/16/24 09/16/24 09/16/24 01:21 02:27 06:47 WBC 9.17 RBC 4.74 Hgb 13.2 L Hct 41.1 L MCV 86.7 MCH 27.8 MCHC 32.1 RDW Std Deviation 45.9 RDW Coeff of Kirill 14.5 Plt Count 203 MPV 11.3 Immature Gran % (Auto) Neut % (Auto) Lymph % (Auto) [place] % (Auto) Eos % (Auto) Baso % (Auto) Neut # (Auto) Lymph # (Auto) [place] # (Auto) Eos # (Auto) Baso # (Auto) Immature Gran # (Auto) PT INR APTT PTT Ratio Heparin Anti-Xa, Unfract 0.99 H* 0.68 Sodium 139 Potassium 4.6 Chloride 107 Carbon Dioxide 28 Anion Gap 4 BUN 14 Creatinine 1.37 Est Cr Clr Drug Dosing 58.3 eGFR 56.19 BUN/Creatinine Ratio 10.2 Glucose 101 H Estimat Average Glucose 117 Hemoglobin A1c 5.7 H Calcium 9.1 Magnesium 2.1 Total Bilirubin AST ALT Alkaline Phosphatase Troponin I High Sens 5186.4 H* D 3985.9 H* D Total Protein Albumin Globulin Albumin/Globulin Ratio Triglycerides 95 Cholesterol 168 LDL Cholesterol, Calc 109 VLDL Cholesterol, Calc 19 HDL Cholesterol 40 Cholesterol/HDL Ratio 4.2 Lipase Nasal Screen MRSA (PCR) SARS-CoV-2, RNA, NAAT ECG Additional Comments: EKG today sinus bradycardia nonspecific ST segment changes.
[2024-09-16] MEDS: NITROGLYCERIN 2% OINTMENT 30GM TUBE EXT SCH (11:29)
--- NOTE | 2024-09-16 11:57 | Electrocardiogram Report ---
Test Reason : Blood Pressure : */* mmHG Vent. Rate : 56 BPM Atrial Rate : 56 BPM P-R Int : 134 ms QRS Dur : 74 ms QT Int : 468 ms P-R-T Axes : 74 39 104 degrees QTcB Int : 451 ms Poor data quality, interpretation may be adversely affected Sinus bradycardia Borderline ECG When compared with ECG of 15-Sep-2024 21:17, No significant change was found Confirmed by Alejandro Gillespie ([id number]) on 09/16/2024 11:57:19 AM Referred By: [facility] Confirmed By: Alejandro Gillespie
[2024-09-16] MEDS: NITROGLYCERIN SL 0.4 MG/TAB TAB ONE (15:19)
[2024-09-16] MEDS ORDERED: NITROGLYCERIN 2% OINTMENT 30GM TUBE EXT SCH (15:30)
[2024-09-16 16:04] LABS: BUN Creatinine Ratio 10.5 (10-20); Calcium 9.8 mg/dl (8.6-10.3); Creatinine Clr Calc Pharmacy 64.4 ml/min; Potassium 4.3 mmol/L (3.5-5.1)
[2024-09-17 07:33] LABS: Mean Corpuscular Hemoglobin 28.1 pg (25.0-34.0); Mean Corpuscular Hgb Conc 32.6 g/dL (32.0-36.0); Mean Corpuscular Volume 86.1 fL (80.0-100.0); Platelet Count 233 K/uL (130-400); RDW Coefficient of Variation 14.6 % (11.5-14.5); RDW Standard Deviation 45.5 fL (36.4-46.3); Red Blood Count 5.34 M/uL (4.70-6.10); White Blood Count 10.71 K/ul (4.8-10.8)
[2024-09-17 07:44] LABS: ANTI-Xa, UFH(UnfractionatedHep 0.66 IU/ml (0.3-0.7)
[2024-09-17 07:50] LABS: BUN Creatinine Ratio 12.8 (10-20); Calcium 9.8 mg/dl (8.6-10.3); Creatinine Clr Calc Pharmacy 63.9 ml/min; Potassium 5.1 mmol/L (3.5-5.1)
--- NOTE | 2024-09-17 08:23 | Electrocardiogram Report ---
Test Reason : Blood Pressure : */* mmHG Vent. Rate : 69 BPM Atrial Rate : 69 BPM P-R Int : 158 ms QRS Dur : 72 ms QT Int : 392 ms P-R-T Axes : 69 22 71 degrees QTcB Int : 420 ms Normal sinus rhythm Diffuse Minor Nonspecific T wave abnormality Abnormal ECG When compared with ECG of 16-Sep-2024 15:07, No significant change was found Confirmed by Alejandro Gillespie ([id number]) on 09/17/2024 8:22:46 AM Referred By: [facility] Confirmed By: Alejandro Gillespie
--- NOTE | 2024-09-17 09:41 | Hospitalist Progress Note ---
Date of Service September 17, 2024 Assessment & Plan (1) Atypical chest pain: (2) Elevated troponin: (3) Elevated blood pressure reading: Plan Mr. Zapata is a 68-year-old male who is a current prisoner at [facility] with reportedly no medical history who is admitted for severe chest pain that developed the morning of 09/15. Initial troponin at 23.7, however, uptrending to now 5186.4 as of this am. Repeat downtrending Patient on IV heparin at this time. Patient with recurrence of pain: repeat labs ordered EKG stable, patient very calm, nonanxious, resting in bed--exam not congruent with reported discomfort On 09/16, it was reported that patient was expericing 10/10 crushing chest pain. Reported to bedside--patient was calm and conversational but yet endorsing this degree of pain--troponin downtrending and no acute EKG changes. Pain eventually subsided. This am, labs and tele remain stable. #NSTEMI #Atypical Chest Pain admit to PCU for ACS r/o pt appears comfortable but still reports pain 4/10, not reproducible so doubt MSK ECG w/o ischemic change ECHO with EF 60-65%, no RWMA A1C 5.7% pt denies hx of HTN/HLD at baseline, but will trend blood pressure give NTG x 1 now, will also give pepcid 20mg x 1 and continue BID to r/o GI etiology sx are not affected with meals, he had a muffin for breakfast and BBQ chips for dinner last evening Full dose asa given in ED Sx resolved after 1 NTG; however 2-hr trop increased to 288 pg/ml Continue heparin Contuinue ASA Continue nitro paste q6h LDL 109, Total 168,continue atorvastatin 40mg daily NPO after midnight for LHC in am #Prediabetes A1C 5.7% plan to counselor education professor on healthy dietary choices #Abnormal CXR:2.5 cm left suprahilar nodular density. Nonemergent chest CT is recommended to exclude a pulmonary nodule: CXR was artifact, no nodules presentt DVT ppx: heparin drip NPO midnight FULL CODE PCP: [facility] Dispo: contingent on [facility] 09/18 Admission and Anticipated Discharge Date Admission Date: September 15, 2024 Subjective NAEO Reports pain is resolved at this time Denies nausea, vomiting, or other new symptoms Physical Exam Constitutional: WD/WN, vitals as above Respiratory: normal respiratory effort, lungs clear to auscultation Cardiovascular: RRR, no murmur, no edema Gastrointestinal (Abdomen): normal bowel sounds, soft, nontender, no hepatosplenomegaly Neurologic: PERRL, EOMI, accommodation nl, no face palsy, no dysarthria Results & Data Results & Data Vital Signs (Past 12 Hours) Vital Signs Temp Pulse Pulse Resp BP Pulse Ox O2 Del Method 09/17/24 07:51 36.6 C 79 17 147/91 H 94 Room Air 09/17/24 03:32 36.5 C 69 16 136/84 95 Room Air 09/16/24 23:00 63 09/16/24 22:31 37.0 C 59 L 18 124/81 98 Nasal Cannula O2 Flow Rate 09/17/24 07:51 09/17/24 03:32 09/16/24 23:00 09/16/24 22:31 2 Laboratory Results Short CBC 09/17/24 Range/Units 07:00 WBC 10.71 (4.8-10.8) K/ul Hgb 15.0 (14.0-18.0) g/dl Hct 46.0 (42.0-52.0) % Plt Count 233 (130-400) K/uL BMP 09/16/24 09/17/24 15:23 07:00 Sodium 139 139 Potassium 4.3 5.1 Chloride 106 104 Carbon Dioxide 28 30 BUN 13 16 Creatinine 1.24 1.25 Glucose 114 H 117 H Calcium 9.8 9.8 Medications Administered Home Medications Medication Instructions Recorded Confirmed Last Taken No Known Home Medications 09/15/24 09/15/24 Unknown Active Medications Generic Name Dose Route Start Last Admin Trade Name Freq PRN Reason Stop Dose Admin Aspirin 81 mg 09/16/24 09:00 09/17/24 08:51 Aspirin 81 Mg Ectab PO 10/16/24 08:59 81 mg QAM SIMON Administration Atorvastatin Calcium 40 mg 09/16/24 09:00 09/17/24 08:51 Atorvastatin 40 Mg Tab PO 10/16/24 08:59 40 mg QAM SIMON Administration Famotidine 20 mg 09/15/24 21:00 09/17/24 08:51 Famotidine 20 Mg Tab PO 10/15/24 20:59 20 mg BID SIMON Administration Heparin Sodium/Dextrose 25,000 units in 500 mls @ 22 mls/hr 09/15/24 15:45 09/16/24 19:16 Heparin Sodium/Dextrose IV 10/15/24 15:44 1,100 units/hr .[id number] SIMON 22 mls/hr Titration Protocol 1,100 UNITS/HR Nitroglycerin 0.5 inch 09/16/24 10:30 09/17/24 04:39 Nitroglycerin 2% Ointment 30gm Tube EXT 10/16/24 10:29 0.5 inch Q6H SIMON Administration
--- NOTE | 2024-09-17 10:18 | Cardiology Progress Note ---
Date of Service September 17, 2024 Assessment & Plan (1) NSTEMI (non-ST elevated myocardial infarction): (2) Elevated troponin: (3) Precordial chest pain: Plan 68-year-old male without prior history of cardiac disease who developed chest pain substernally at rest. Initial EKG normal elevated troponins consistent with non-ST segment elevation myocardial infarction. Agree with anticoagulation with heparin, aspirin. Maintain telemetry The echocardiogram to be formally reviewed but on preliminary review normal wall motion. Further recommendations as clinical course progresses 09/16/2024 Presentation consistent with non-ST segment elevation myocardial infarction with significant rise in troponins. EKGs without injury pattern. Patient appropriately anticoagulated with IV heparin Beta-sheila contraindicated secondary to resting bradycardia Will add topical nitrates to regimen Plan diagnostic coronary angiography Wednesday morning unless patient develops unstable symptoms. May resume diet in interim 09/17/2024 No further cardiac symptoms. Findings consistent with non-ST segment elevation myocardial infarction Continue current therapies Plan diagnostic coronary angiography in a.m., n.p.o. after midnight Continue nitrates, aspirin, statin Admission and Anticipated Discharge Date Admission Date: September 15, 2024 Subjective Patient seen and personally examined. No chest pain or shortness of breath overnight no cardiac symptoms. Telemetry sinus and sinus bradycardia though heart rates trending slightly higher No bleeding issues on anticoagulation. Review of Systems Review of Systems: All systems reviewed & are unremarkable except as noted in Subjective Physical Exam Constitutional: WD/WN, vitals as above no acute distress Eyes: PERRL, conjunctivae normal, anicteric sclerae ENMT: external ear and nose normal, oropharynx normal Neck: trachea midline, no thyromegaly Respiratory: normal respiratory effort, lungs clear to auscultation Cardiovascular: RRR, no murmur, no edema Vessels: radial pulses present; no JVD Extremities: no edema Gastrointestinal (Abdomen): normal bowel sounds, soft, nontender, no hepatosplenomegaly Musculoskeletal: no cyanosis or clubbing, extremities motor strength 5/5 Results & Data Vital Signs (Past 12 Hours) Vital Signs Temp Pulse Pulse Resp BP Pulse Ox O2 Del Method 09/17/24 07:51 36.6 C 79 17 147/91 H 94 Room Air 09/17/24 03:32 36.5 C 69 16 136/84 95 Room Air 09/16/24 23:00 63 09/16/24 22:31 37.0 C 59 L 18 124/81 98 Nasal Cannula O2 Flow Rate 09/17/24 07:51 09/17/24 03:32 09/16/24 23:00 09/16/24 22:31 2 Laboratory Results Laboratory Results - last 24 hr 09/16/24 09/16/24 09/16/24 11:07 15:23 15:30 WBC RBC Hgb Hct MCV MCH MCHC RDW Std Deviation RDW Coeff of Kirill Plt Count MPV Heparin Anti-Xa, Unfract 0.50 Sodium 139 Potassium 4.3 Chloride 106 Carbon Dioxide 28 Anion Gap 5 BUN 13 Creatinine 1.24 Est Cr Clr Drug Dosing 64.4 eGFR 63.33 BUN/Creatinine Ratio 10.5 Glucose 114 H Lactate 1.1 Calcium 9.8 Troponin I High Sens 1685.0 H* D 09/16/24 09/17/24 17:30 07:00 WBC 10.71 RBC 5.34 Hgb 15.0 Hct 46.0 MCV 86.1 MCH 28.1 MCHC 32.6 RDW Std Deviation 45.5 RDW Coeff of Kirill 14.6 H Plt Count 233 MPV 11.0 Heparin Anti-Xa, Unfract 0.66 Sodium 139 Potassium 5.1 Chloride 104 Carbon Dioxide 30 Anion Gap 5 BUN 16 Creatinine 1.25 Est Cr Clr Drug Dosing 63.9 eGFR 62.72 BUN/Creatinine Ratio 12.8 Glucose 117 H Lactate Calcium 9.8 Troponin I High Sens 1592.9 H*
[2024-09-18 08:04] LABS: ANTI-Xa, UFH(UnfractionatedHep 0.61 IU/ml (0.3-0.7); Hematocrit (blood only) 43.8 % (42.0-52.0); Hemoglobin 14.5 g/dl (14.0-18.0); Mean Corpuscular Hemoglobin 27.9 pg (25.0-34.0); Mean Corpuscular Hgb Conc 33.1 g/dL (32.0-36.0); Mean Corpuscular Volume 84.2 fL (80.0-100.0); Mean Platelet Volume 12.3 fL (9.4-12.4); Platelet Count 224 K/uL (130-400); RDW Coefficient of Variation 14.4 % (11.5-14.5); RDW Standard Deviation 44.2 fL (36.4-46.3); White Blood Count 9.52 K/ul (4.8-10.8)
[2024-09-18 08:07] LABS: Potassium 3.6 mmol/L (3.5-5.1)
[2024-09-18 08:08] LABS: BUN Creatinine Ratio 12.8 (10-20); Calcium 9.1 mg/dl (8.6-10.3); Creatinine Clr Calc Pharmacy 68.3 ml/min
--- NOTE | 2024-09-18 09:19 | Cardiology Progress Note ---
Date of Service September 18, 2024 Assessment & Plan (1) NSTEMI (non-ST elevated myocardial infarction): (2) Elevated troponin: (3) Precordial chest pain: Plan 68-year-old male without prior history of cardiac disease who developed chest pain substernally at rest. Initial EKG normal elevated troponin consistent with non-ST segment elevation myocardial infarction. Agree with anticoagulation with heparin, aspirin. Maintain telemetry The echocardiogram to be formally reviewed but on preliminary review normal wall motion. Further recommendations as clinical course progresses Continue ASA , atorvastatin, topical nitrates. NPO Hold heparin infusion for coronary angiography. Will revisit vitals post catheterization to see if there is room to add low dose metoprolol. Admission and Anticipated Discharge Date Admission Date: September 15, 2024 Subjective Patient seen in cardiology follow up. Comfortable. No additional chest pain overnight or at present. SR noted on telemetry. Heparin infusion on hold pending cardiac catheterization. Review of Systems Review of Systems: All systems reviewed & are unremarkable except as noted in HPI & below Physical Exam Constitutional: WD/WN, vitals as above Eyes: PERRL, conjunctivae normal, anicteric sclerae Neck: trachea midline, no thyromegaly Respiratory: normal respiratory effort, lungs clear to auscultation Cardiovascular: RRR, no murmur, no edema 2+ bilateral Radial Atery pulses Gastrointestinal (Abdomen): normal bowel sounds, soft, nontender, no hepatosplenomegaly Skin: no rashes, warm and dry Neurologic: PERRL, EOMI, accommodation nl, no face palsy, no dysarthria Results & Data Vital Signs (Past 12 Hours) Vital Signs Temp Pulse Pulse Resp BP BP Pulse Ox 09/18/24 08:21 80 14 138/83 96 09/18/24 07:47 36.8 C 80 16 124/74 94 09/18/24 07:32 79 09/18/24 03:35 36.6 C 78 16 100/65 93 09/17/24 23:00 76 09/17/24 23:00 36.7 C 83 18 143/81 H 94 O2 Del Method 09/18/24 08:21 Room Air 09/18/24 07:47 Room Air 09/18/24 07:32 09/18/24 03:35 Room Air 09/17/24 23:00 09/17/24 23:00 Room Air Laboratory Results HS troponin: 5,186 --> 1,592 pg/ml. Diagnostic Findings EKG performed 09/16/24: SR diffuse non specific T wave flattening
[2024-09-18] MEDS: LIDOCAINE 1% LOCAL 20 ML VIAL ONE (10:06)
[2024-09-18] MEDS: niCARdipine 2,000 MCG/20 ML SYR ONE (10:08)
[2024-09-18] MEDS: ASPIRIN 81 MG CHEW ONE (10:09)
[2024-09-18] MEDS: NITROGLYCERIN/D5W 100MCG/ML 20ML SYR ONE (10:09)
[2024-09-18] MEDS: HEPARIN (PORCINE) 1000 UNIT/ML 10 ML (CATH LAB USE ONLY) ONE (10:55)
[2024-09-18] MEDS: MIDAZOLAM HCL 1 MG/ML 2ML VIAL ONE (10:55)
[2024-09-18] MEDS: OPTIRAY 350 ONE (10:55)
[2024-09-18] MEDS: fentaNYL citrate PF 100 MCG/2 ML VIAL ONE (10:55)
--- NOTE | 2024-09-18 11:12 | Pre Anesthesia Assessment ---
Date of Service September 18, 2024 Pre Sedation Assessment Vital Signs Temp Pulse Pulse Resp BP BP Pulse Ox 09/18/24 11:00 36.6 C 67 18 126/81 98 09/18/24 08:21 80 14 138/83 96 09/18/24 07:47 36.8 C 80 16 124/74 94 09/18/24 07:32 79 09/18/24 03:35 36.6 C 78 16 100/65 93 09/17/24 23:00 76 09/17/24 23:00 36.7 C 83 18 143/81 H 94 09/17/24 19:38 36.6 C 88 16 151/90 H 96 09/17/24 16:13 36.9 C 85 19 127/80 95 09/17/24 13:00 83 O2 Del Method 09/18/24 11:00 Room Air 09/18/24 08:21 Room Air 09/18/24 07:47 Room Air 09/18/24 07:32 09/18/24 03:35 Room Air 09/17/24 23:00 09/17/24 23:00 Room Air 09/17/24 19:38 Room Air 09/17/24 16:13 Room Air 09/17/24 13:00 Cardiovascular RRR, no murmur, no edema Respiratory normal respiratory effort, lungs clear to auscultation Pre-Sedation Airway Assessment Smoking Status: Never smoker Hx Sleep Apnea: No Short, Thick Neck: No Thyromental Distance: > or= 3.5 Finger Breadths Oral Cavity: + WNL Mallampati Class: III ASA: ASA4 NPO Status Date of Last Intake of Fluids: 09/17/24 Time of Last Intake of Fluids: 18:00 Date of Last Intake of Solid Food: 09/17/24 Time of Last Intake of Solid Foods: 18:00 Notes The planned sedation has been discussed with the patient. Informed Consent was obtained. I have identified the patient, determined the appropriateness of sedation and have assessed the patient immediately prior to the procedure. All medicine(s) and interventions are by my order.
--- NOTE | 2024-09-18 11:12 | Post Anesthesia Assessment ---
Date of Service September 18, 2024 Post Sedation Assessment Vital Signs Temp Pulse Pulse Resp BP BP Pulse Ox 09/18/24 08:21 80 14 138/83 96 09/18/24 07:47 36.8 C 80 16 124/74 94 09/18/24 07:32 79 09/18/24 03:35 36.6 C 78 16 100/65 93 09/17/24 23:00 76 09/17/24 23:00 36.7 C 83 18 143/81 H 94 09/17/24 19:38 36.6 C 88 16 151/90 H 96 09/17/24 16:13 36.9 C 85 19 127/80 95 09/17/24 13:00 83 O2 Del Method 09/18/24 08:21 Room Air 09/18/24 07:47 Room Air 09/18/24 07:32 09/18/24 03:35 Room Air 09/17/24 23:00 09/17/24 23:00 Room Air 09/17/24 19:38 Room Air 09/17/24 16:13 Room Air 09/17/24 13:00 Recovery Score Activity: Moves 4 extremities Respiration: Deep Breath/Cough Circulation: +/-20% PreAnes Value Consciousness: Fully Awake Oxygen Saturation: > 92% On Room Air Discharge Sedation Level of Care: Fast Track Phase II Post Sedation Plan On clinical assessment, the patient appears to have tolerated the sedation without complications. Patient is recovering as anticipated. Patient will continue to be monitored by nursing and may be discharged when sedation discharge criteria are met per below protocol. Upon Completions of procedure up to 15 minutes continue every 5 minute vital signs and the P.A.R. score; then discharge to a Phase I or Fast Track to Phase II per the following guidelines: * Discharge Patient to appropriate Phase II area if PAR is 8 or greater or return to pre- procedure baseline. The post - procedure orders will be as directed. * If PAR score is less than 8 or not return to pre-procedure baseline then patient will follow Phase I monitoring till PAR is reached for Phase II. The Phase I may be done in procedure room or may call to secure a Phase I area. * If naloxone or flumazenil are used for reversal, hold in Phase I for continued monitoring from when last reversal dose was given for a minimum of 60 minutes or longer pending the nurse and/or physician discretion of patient condition before discharge to Phase II. Please call the Sedation Physician to re-evaluate and complete post-note for discharge to Phase II area. Do NOT discharge from procedure sedation or Phase 1 until post- sedation evaluation note is complete by procedure /sedation MD Sedation Discharge Instructions to be given to the patient at discharge to home. [facility]odes (Charges) Indication for Procedure Indication for procedure: NSTEMI Sedation/Anesthesia Procedure 1: Sedation/Anesthesia: 70928 Mod Sedation by the same physician;Init15 Min Child Age 5 & Up (initial 15 min, start 10:13) Total Sedation Time (minutes): 43 Procedure 2: Sedation/Anesthesia: 26267 Mod Sedation by the same physician; Ea [id number] Minutes (Additional 28 min, end time 1056) Total Sedation Time (minutes): 43
--- NOTE | 2024-09-18 13:27 | Hospitalist Progress Note ---
Date of Service September 18, 2024 Assessment & Plan (1) Atypical chest pain: (2) Elevated troponin: (3) Elevated blood pressure reading: Plan Mr. Zapata is a 68-year-old male who is a current prisoner at [facility] with reportedly no medical history who is admitted for severe chest pain that developed the morning of 09/15. 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 Nonemergent chest CT is recommended to exclude a pulmonary nodule: CXR was artifact, no nodules presentt DVT ppx: currently off heparin gtt FULL CODE PCP: [facility] Dispo: tentative plan to transfer to tertiary for high risk PCI I spent a total of 44 minutes reviewing notes, outpatient records, labs, medication, coordinating, documenting and providing care for this patient excluding time spent in the performance of separately billed services. Admission and Anticipated Discharge Date Admission Date: September 15, 2024 Supervising Physician Co-Signing Physician Notes I have seen and discussed the case with the collaborating advanced practitioner. I agree with the above PN.I have reviewed and confirmed the patients medical history, the findings on physical examination, and the patients diagnosis and treatment plan with Roland FORTUNE and agree with the information documented. NSTEMI, s/p cath--seemingly pending transfer I spent a total of 5 minutes coordinating, documenting, and providing care for this patient excluding time spent in the performance of separately billed services. All of the aforementioned completed outside of collaborating with the assigned advanced practitioner for a full treatment plan. I have reviewed the advanced practitioner's documentation, and I agree with, and take responsibility for the plan of care Subjective Pt is s/p heart cath. He denies any current chest pain, sob, n/v/d. He ate his lunch. He reports the plan is to be transferred to [facility]. Review of Systems Review of Systems: All systems reviewed & are unremarkable except as noted in HPI & below Physical Exam Physical Exam: Gen: WD/WN, NAD, A&O x3 HEENT: Normocephalic, atraumatic, conjunctivae moist, sclerae anicteric, mucous membranes moist. Lung: Clear to Auscultation bilaterally, no wheezes/rales/rhonchi Heart: Regular rate, regular rhythm, no murmurs, rubs, or gallops Abdomen: Soft, NT, ND +BS x 4 Extremities: No edema, R radial band in tact, no hematoma Skin: Warm, no rash, negative turgor. Constitutional: WD/WN, vitals as above Respiratory: normal respiratory effort, lungs clear to auscultation Cardiovascular: RRR, no murmur, no edema Gastrointestinal (Abdomen): normal bowel sounds, soft, nontender, no hepatosplenomegaly Neurologic: PERRL, EOMI, accommodation nl, no face palsy, no dysarthria Results & Data Results & Data Vital Signs (Past 12 Hours) Vital Signs Temp Pulse Pulse Resp BP BP Pulse Ox 09/18/24 12:11 86 18 118/83 95 09/18/24 11:54 36.8 C 80 16 134/74 94 09/18/24 11:45 74 09/18/24 11:26 36.4 C L 76 18 131/91 98 09/18/24 11:15 65 18 125/87 98 09/18/24 11:00 36.6 C 67 18 126/81 98 09/18/24 08:21 80 14 138/83 96 09/18/24 07:47 36.8 C 80 16 124/74 94 09/18/24 07:32 79 09/18/24 03:35 36.6 C 78 16 100/65 93 O2 Del Method 09/18/24 12:11 Room Air 09/18/24 11:54 Room Air 09/18/24 11:45 09/18/24 11:26 Room Air 09/18/24 11:15 Room Air 09/18/24 11:00 Room Air 09/18/24 08:21 Room Air 09/18/24 07:47 Room Air 09/18/24 07:32 09/18/24 03:35 Room Air Laboratory Results Short CBC 09/18/24 Range/Units 06:55 WBC 9.52 (4.8-10.8) K/ul Hgb 14.5 (14.0-18.0) g/dl Hct 43.8 (42.0-52.0) % Plt Count 224 (130-400) K/uL BMP 09/18/24 06:55 Sodium 141 Potassium 3.6 D Chloride 108 H Carbon Dioxide 25 BUN 15 Creatinine 1.17 Glucose 108 H Calcium 9.1 I have independently reviewed and interpreted patient's cbc, bmp Medications Administered Current Inpatient Medications Acetaminophen (Acetaminophen 325 Mg Tab) 650 mg PO Q4H PRN PRN Reason: Pain or Fever Stop: 10/15/24 14:42 Al Hydrox/Mg Hydrox/Simethicone (Aluminum/Magnesium Susp 30 Ml Udc) 15 ml PO Q4H PRN PRN Reason: Dyspepsia Stop: 10/15/24 14:42 Aspirin (Aspirin 81 Mg Ectab) [address] [facility] Stop: 10/16/24 08:59 Last Admin: 09/18/24 11:27 Dose: Not Given Atorvastatin Calcium (Atorvastatin 40 Mg Tab) [address] [facility] Stop: 10/16/24 08:59 Last Admin: 09/18/24 11:32 Dose: 40 mg Famotidine (Famotidine 20 Mg Tab) 20 mg PO BID [facility] Stop: 10/15/24 20:59 Last Admin: 09/18/24 11:32 Dose: 20 mg Heparin Sodium/Dextrose (Heparin Sodium/Dextrose) 25,000 units in 500 mls @ 22 mls/hr IV .[id number] [facility]; Protocol Stop: 10/15/24 15:44 Last Titration: 09/18/24 09:06 Dose: 0 units/hr, 0 mls/hr Melatonin (Melatonin 3 Mg Tab) 6 mg PO HS PRN PRN Reason: Sleep Stop: 10/15/24 20:59 Nitroglycerin (Nitroglycerin 2% Ointment 30gm Tube) 0.5 inch EXT Q6H [facility] Stop: 10/16/24 10:29 Last Admin: 09/18/24 11:32 Dose: 0.5 inch Ondansetron HCl (Ondansetron Inj 2 Mg/Ml 2 Ml Vial) 4 mg IV Q6H PRN PRN Reason: Nausea Stop: 10/15/24 14:42
--- NOTE | 2024-09-18 15:07 | Communication Note ---
Date of Service: September 18, 2024 Coronary angiography films reviewed and case discussed with Dr. Luque of interventional cardiology. Patient felt to have a culprit high-grade stenosis of the proximal circumflex coronary artery and the mid right coronary artery has serial high-grade stenoses in the range of 70 to 80% at the mid segment of the vessel. The left main and left anterior sending are felt to not have obstructive disease, IFR measurement of the proximal LAD was 0.95. After reviewing the case, it was felt most appropriate to consider transfer to tertiary center for consideration of technically complex high risk multivessel PCI. Patient was agreeable. I therefore discussed the case by phone with Radha Fowler of clinical cardiology at [facility] who accepted the patient in transfer. Heparin to be reinitiated at 1500. Continue aspirin 81 mg daily, atorvastatin, topical nitrates. Patient is pain-free and stable for transfer by [facility] ground when a bed is available. Davey Coulter, DO
--- NOTE | 2024-09-18 15:37 | Discharge Summary ---
Discharge Summary Date of Service September 18, 2024 Principal Dx & Hospital Course #1 = Principal Diagnosis (1) Atypical chest pain: (2) Elevated troponin: (3) Elevated blood pressure reading: Plan Mr. Zapata is a 68-year-old male who is a current prisoner at [facility] with reportedly no medical history who is admitted for severe chest pain that developed the morning of 09/15. On admission patient's troponin was 23.7 pg/ml which peaked at 5,186 pg/ml. He was placed on IV heparin. he remained hemodynamically stable throughout hospital admission. Prior to availability for cardiac catheterization he did develop chest pain again, which improved with conservative management. On 09/18/2024 patient underwent cardiac catheterization by Dr. Baird. Final cardiac catheterization report is pending, but per discussion with primary maitre d' patient has a culprit circumflex lesion as well as 2 serial RCA lesions. PCI is felt to be high risk and therefore it is recommended patient be transferred to tertiary center, [facility]. Dr. Coulter sent cath images and echo and patient was accepted by Dr. Radha Dickson. of note prior to hospitalization patient is currently an inmate at [facility]. Prior to hospitalization he was not taking any prescription medications. While inpatient he was started on ASA 81 mg, atorvastatin 40 mg daily and metoprolol succinate 12.5 mg daily. His LDL was 109 and total cholesterol was 168. His A1c is at 5.7. Patient's IV heparin was resumed post cardiac catheterization. His right radial band has since been removed without evidence of hematoma. At time of discharge patient is in good spirits and hemodynamically stable. He is chest pain-free. Current Inpatient Medications Acetaminophen (Acetaminophen 325 Mg Tab) 650 mg PO Q4H PRN PRN Reason: Pain or Fever Stop: 10/15/24 14:42 Al Hydrox/Mg Hydrox/Simethicone (Aluminum/Magnesium Susp 30 Ml Udc) 15 ml PO Q4H PRN PRN Reason: Dyspepsia Stop: 10/15/24 14:42 Aspirin (Aspirin 81 Mg Ectab) 81 mg PO [facility] Stop: 10/16/24 08:59 Last Admin: 09/18/24 11:27 Dose: Not Given Atorvastatin Calcium (Atorvastatin 40 Mg Tab) 40 mg PO [facility] Stop: 10/16/24 08:59 Last Admin: 09/18/24 11:32 Dose: 40 mg Heparin Sodium/Dextrose (Heparin Sodium/Dextrose) 25,000 units in 500 mls @ 22 mls/hr IV .[id number] [facility]; Protocol Stop: 10/15/24 15:44 Last Titration: 09/18/24 09:06 Dose: 0 units/hr, 0 mls/hr Melatonin (Melatonin 3 Mg Tab) 6 mg PO HS PRN PRN Reason: Sleep Stop: 10/15/24 20:59 Metoprolol Succinate (Metoprolol Succ 25mg Ext Rel Tab) 12.5 mg PO QAM [facility] Stop: 10/18/24 14:59 Nitroglycerin (Nitroglycerin 2% Ointment 30gm Tube) 0.5 inch EXT Q6H [facility] Stop: 10/16/24 10:29 Last Admin: 09/18/24 11:32 Dose: 0.5 inch Ondansetron HCl (Ondansetron Inj 2 Mg/Ml 2 Ml Vial) 4 mg IV Q6H PRN PRN Reason: Nausea Stop: 10/15/24 14:42 Notes For Next Care Provider Transfer to High Risk PCI Medication Changes From Visit ASA 81mg daily, Atorvastatin 40mg daily, Metoprolol Succinate 12.5mg daily. Admission HPI Per Admitting Provider This is a 68-year-old male who is a current prisoner at [facility]. He reports this morning at 8 AM he was sitting watching TV whenever he developed severe precordial chest pain. Pain was initially 10 out of 10. He described it as, "an elephant on my chest." He denied any other associated symptoms including diaphoresis, shortness of breath, palpitations, nausea, vomiting, lightheadedness or dizziness. He denies ever feeling something similar in the past. Nothing seem to make the pain worse including deep breathing, lying down or leaning forward or touch. He denies any recent heavy lifting. He typically walks 2 miles daily on a flat surface. He denies developing any substernal chest pain or shortness of breath with this. He denies any history of HTN, HLD, T2DM or known family history of CAD. He is unsure of his family's past medical history. He denies any recent illness, fever, chills, sweats or change in his bowel or urinary habits. He denies ever having a prior history of GERD. He has a prior hx of alcohol use and cocaine use in the 80s. In ED patient remained hemodynamically stable. He reports his chest pain has significantly improved and is currently a 4 out of 10. His CBC and CMP was generally unremarkable. His initial troponin is 23.7. His EKG was without acute ischemic change. He was ordered full dose aspirin to be given in ED. Admission Exam Per Admitting Provider Constitutional: WD/WN, vitals as above, NAD, sitting up in bed, pleasant, conversing easily Head: Normocephalic, Atraumatic Eyes: PERRL, conjunctivae normal, anicteric sclerae ENMT: external ear and nose normal, oropharynx normal Neck: trachea midline, no thyromegaly normal visual inspection Respiratory: normal respiratory effort, lungs clear to auscultation, no wheeze, rales, rhonchi. Normal insp/exp effort, no accessory muscle use Cardiovascular: RRR, no murmur, no edema Vessels: no JVD or carotid bruit Chest: normal inspection of chest Abdomen: normal bowel sounds, soft, nontender, no hepatosplenomegaly Musculoskeletal: no cyanosis or clubbing, extremities motor strength 5/5 Skin: no rashes, warm and dry normal turgor Neurologic: PERRL, EOMI, accommodation nl, no face palsy, no dysarthria CN's II-XI intact bilaterally and moves all extremities Psychiatric: A+Ox3, euthymic affect Discharge Exam Gen: WD/WN, NAD, A&O x3 HEENT: Normocephalic, atraumatic, conjunctivae moist, sclerae anicteric, mucous membranes moist. Lung: Clear to Auscultation bilaterally, no wheezes/rales/rhonchi Heart: Regular rate, regular rhythm, no murmurs, rubs, or gallops Abdomen: Soft, NT, ND +BS x 4 Extremities: No edema, R radial band in tact, no hematoma Skin: Warm, no rash, negative turgor. Updated Medication List Medication Instructions Recorded Confirmed Type No Known Home Medications 09/15/24 09/15/24 History Additional Medication Comments Current Inpatient Medications Acetaminophen (Acetaminophen 325 Mg Tab) 650 mg PO Q4H PRN PRN Reason: Pain or Fever Stop: 10/15/24 14:42 Al Hydrox/Mg Hydrox/Simethicone (Aluminum/Magnesium Susp 30 Ml Udc) 15 ml PO Q4H PRN PRN Reason: Dyspepsia Stop: 10/15/24 14:42 Aspirin (Aspirin 81 Mg Ectab) 81 mg PO [facility] Stop: 10/16/24 08:59 Last Admin: 09/18/24 11:27 Dose: Not Given Atorvastatin Calcium (Atorvastatin 40 Mg Tab) 40 mg PO [facility] Stop: 10/16/24 08:59 Last Admin: 09/18/24 11:32 Dose: 40 mg Heparin Sodium/Dextrose (Heparin Sodium/Dextrose) 25,000 units in 500 mls @ 22 mls/hr IV .[id number] [facility]; Protocol Stop: 10/15/24 15:44 Last Titration: 09/18/24 09:06 Dose: 0 units/hr, 0 mls/hr Melatonin (Melatonin 3 Mg Tab) 6 mg PO HS PRN PRN Reason: Sleep Stop: 10/15/24 20:59 Metoprolol Succinate (Metoprolol Succ 25mg Ext Rel Tab) 12.5 mg PO [facility] Stop: 10/18/24 14:59 Nitroglycerin (Nitroglycerin 2% Ointment 30gm Tube) 0.5 inch EXT Q6H [facility] Stop: 10/16/24 10:29 Last Admin: 09/18/24 11:32 Dose: 0.5 inch Ondansetron HCl (Ondansetron Inj 2 Mg/Ml 2 Ml Vial) 4 mg IV Q6H PRN PRN Reason: Nausea Stop: 10/15/24 14:42 Hospital Stay Data Consultations 09/15/24 13:43 ED Decision to Admit Stat 09/15/24 15:21 Consult Cardiology Routine Procedures Performed Operation Date: 09/18/24 10:00 Actual Procedures p Cineradiography w/Routine Exam - Zack Webb MD, PhD p Cath, Coronaries ONLY (no LV) - Zack Webb MD, PhD Diagnostic Imagining Performed Chest X-Ray 09/15/24 11:51 XR chest 1V portable CLINICAL HISTORY: Chest pain, nonspecific COMPARISON STUDY: No previous studies for comparison. FINDINGS: There is moderate elevation of the left hemidiaphragm. No pneumothorax or pleural effusion is present. There is no consolidation. A 2.5 cm left suprahilar nodular density is present. Cardiomediastinal silhouette is unremarkable. There is an old left 10th rib fracture. IMPRESSION: 1. 2.5 cm left suprahilar nodular density. Nonemergent chest CT is recommended to exclude a pulmonary nodule. 2. No acute cardiopulmonary findings. 3. Moderate elevation of the left hemidiaphragm. ACT 112: Negative or not required by law. Electronically signed by: Sammy Avendano M.D. 09/15/2024 12:[address] 09/15/24 14:29 CT OF THE CHEST WITHOUT IV CONTRAST CLINICAL HISTORY: Chest pain. COMPARISON STUDY: Chest radiograph performed earlier today. CT DOSE: 499.66 mGy.cm TECHNIQUE: Axial images of the chest were obtained without IV contrast. Images were reviewed in the axial, sagittal, and coronal planes. IV contrast was not administered for this examination. Automated exposure control was utilized for the study. A dose lowering technique was utilized adhering to the principles of ALARA. FINDINGS: No enlarged axillary, mediastinal or hilar lymph nodes are present. The size of the heart is normal. There is no pericardial effusion. There is moderate coronary artery calcification. The left suprahilar abnormality on chest radiograph performed earlier today was artifactual. This is due to pulmonary vessels. Moderate elevation of the left hemidiaphragm is noted. Associated subpleural left lower lobe opacity represents atelectasis. No consolidation is present to suggest pneumonia. There are no pulmonary nodules. There is no pneumothorax or pleural effusion. No fractures are identified within the bony thorax. Visualized portions of the upper abdomen are unremarkable on unenhanced exam. IMPRESSION: 1. No acute intrathoracic findings. 2. Moderate elevation of the left hemidiaphragm. Associated subpleural left lower lobe opacity represents atelectasis. 3. The left suprahilar abnormality on chest radiograph performed earlier today was artifactual. ACT 112: Negative or not required by law. Electronically signed by: Sammy Avendano M.D. 09/15/2024 3:57 PM Pending Results Patient Have Any Pending Studies at Discharge: No Discharge Instructions Given to Patient (Per Discharging Provider) Current Inpatient Medications Acetaminophen (Acetaminophen 325 Mg Tab) 650 mg PO Q4H PRN PRN Reason: Pain or Fever Stop: 10/15/24 14:42 Al Hydrox/Mg Hydrox/Simethicone (Aluminum/Magnesium Susp 30 Ml Udc) 15 ml PO Q4H PRN PRN Reason: Dyspepsia Stop: 10/15/24 14:42 Aspirin (Aspirin 81 Mg Ectab) 81 mg PO [facility] Stop: 10/16/24 08:59 Last Admin: 09/18/24 11:27 Dose: Not Given Atorvastatin Calcium (Atorvastatin 40 Mg Tab) 40 mg PO [facility] Stop: 10/16/24 08:59 Last Admin: 09/18/24 11:32 Dose: 40 mg Heparin Sodium/Dextrose (Heparin Sodium/Dextrose) 25,000 units in 500 mls @ 22 mls/hr IV .[id number] [facility]; Protocol Stop: 10/15/24 15:44 Last Titration: 09/18/24 09:06 Dose: 0 units/hr, 0 mls/hr Melatonin (Melatonin 3 Mg Tab) 6 mg PO HS PRN PRN Reason: Sleep Stop: 10/15/24 20:59 Metoprolol Succinate (Metoprolol Succ 25mg Ext Rel Tab) 12.5 mg PO [facility] Stop: 10/18/24 14:59 Nitroglycerin (Nitroglycerin 2% Ointment 30gm Tube) 0.5 inch EXT Q6H [facility] Stop: 10/16/24 10:29 Last Admin: 09/18/24 11:32 Dose: 0.5 inch Ondansetron HCl (Ondansetron Inj 2 Mg/Ml 2 Ml Vial) 4 mg IV Q6H PRN PRN Reason: Nausea Stop: 10/15/24 14:42 Total Time Total Time Spent Total Time Spent (In Minutes): 45 minutes Supervising Physician Co-Signing Physician Notes I have seen and discussed the case with the collaborating advanced practitioner. I agree with the above PN.I have reviewed and confirmed the patients medical history, the findings on physical examination, and the patients diagnosis and treatment plan with Roland FORTUNE and agree with the information documented. NSTEMI, s/p cath--seemingly pending transfer patient will likely require complex multivessel pci No chest pain s/p [facility] agreed for plan for transfer I spent a total of 5 minutes coordinating, documenting, and providing care for this patient excluding time spent in the performance of separately billed services. All of the aforementioned completed outside of collaborating with the assigned advanced practitioner for a full treatment plan. I have reviewed the advanced practitioner's documentation, and I agree with, and take responsibility for the plan of care
[2024-09-18] MEDS: METOPROLOL SUCC 25MG EXT REL TAB PO SCH (15:56)
--- NOTE | 2024-09-18 17:42 | Cardiac Catheterization ---
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 Cardiac Status Clinical evaluation leading to the procedure CAD Presenation: Non STEMI Anginal Classification: CCS IV Heart Failure: No Cardiogenic Shock within 24 Hours: No Cardiac Arrest within 24 Hours: No Imaging Studies Past 6 Months: No Coronary Anatomy Dominant: Right Left Main (% Stenosis): Normal (Calcified) LAD (% Stenosis): Ostial (50 to 70%, calcified) and Mid (Myocardial bridge) D1 (% Stenosis): Normal Circumflex (% Stenosis): Proximal (70 to 80% calcified) and Distal (99%) OM1 (% Stenosis): Normal OM2 (% Stenosis): Normal L PL1 (% Stenosis): Normal RCA (% Stenosis): Proximal (Up to 50%), Mid (Calcified 70 to 80%) and Distal (Hazy 30-50%) R PDA (% Stenosis): Normal R PL1 (% Stenosis): Normal Diagnostic Physicians Name: Zack Webb MD, PhD Closure Device Percutaneous Entry Location: Radial Closure Device: Radial Band Recommendations: Medical Therapy and/or Counseling and PCI without planned CABG Intraprocedure Events Significant Disection: No Perforation: No Cardiac Cath Procedure Full Procedure Date September 18, 2024 Pre-Procedure Diagnosis Pre-Procedure Diagnosis: Non STEMI AUC Score AUC Score: 07 Post-Procedure Diagnosis Post-Procedure Diagnosis: Severe CAD Procedure(s) Performed Procedure(s) Performed: Coronary Angiography and Fractional Flow [place] (IFR) Philanthropy Officer Zack Webb MD, PhD Estimated Blood Loss Estimated Blood Loss: None (5 cc) Medication(s) Medication(s): Fentanyl, Heparin, Lidocaine 1%, Nicardipine, Nitroglycerin and Versed Summary of Findings Brief description: Patient was brought to the cardiac catheterization suite where he was shaved and prepped in a sterile fashion. Sedated using IV Versed and fentanyl. Soft tissues of the right wrist were anesthetized using 2 mL of 1% Xylocaine. Right radial artery was accessed with a modified Seldinger technique and a 6 [place] radial artery glide sheath was placed. Patient was provided anticoagulation with IV heparin and antispasmodics including nitroglycerin and nicardipine. All catheters were advanced and exchanged over a 0.035 J-tip wire. Initial advancement was over a 0.035 Wholey wire. Left coronary angiography in orthogonal views with a 5 [place] [facility] 4 diagnostic catheter. Right coronary angiography in orthogonal views a 5 [place] [facility] 4 diagnostic catheter. Diagnostic catheters were removed. Decision was made to perform IFR analysis of the ostial LAD lesion. a 6 [place] EBU 3.5 guide catheter was used to engage the left main. Omni Doppler wave wire was advanced and positioned with the transducer just outside the guide catheter tip. The system was flushed with normal saline. Pressures were normalized. Guidewire was advanced beyond the lesion in the LAD. iFR was sampled 3 times. The guidewire was removed from the patient and final angiographic evaluation was performed. Guide catheter was removed from the patient. Radial artery sheath was removed. Hemostasis was obtained using a TR band. Patient remained hemodynamically stable and asymptomatic. He was returned to the recovery area. This ended the case. Coronary angiography findings: CDS-bjsna-gbvzecu vessel bifurcating into LAD and circumflex. It is mildly pippa cified and has mild luminal irregularities. CIL-akwok-ovfamkd and transapical vessel. Proximal mild to moderate calcification. There is a focal ostial stenosis of 50 to 70%. Mid vessel has intramyocardial bridging and then the distal vessel has no significant disease. There is a large D1 which has some mild calcification and mild disease. QXe-swjwd-ciyxxeu vessel which is nondominant. Travels in the AV groove. Proximally there is calcific disease of 70 to 80%. There is a small to medium caliber OM1 without significant disease. There is the first atrial branch. The OM 2 is large with 3 major branches and has luminal irregularities. Just after this the distal AV groove circumflex has a 99% stenosis and RADHA I flow through the lesion. The vessel continues distally providing a small posterolateral branch and terminating. RCA-this is large caliber and dominant. Proximal segment with up to 50% stenosis. The mid segment has focal 70 to 80% stenosis. Distal vessel has a hazy lesion appearing 30 to 50% narrowed. The RCA then bifurcates into a large branching PDA and a large posterolateral. These vessels have no angiographically significant disease. IFR of ostial LAD: 0.94, 0.95, 0.95. Therefore, this lesion is not hemodynamically significant. No evidence of dissection or perforation post IFR analysis RADHA-3 flow post IFR analysis Summary: 1. Severe two-vessel coronary disease involving the circumflex and RCA as described. Angiographically borderline stenosis at the ostial LAD. iFR analysis does not suggest hemodynamically significant stenosis at this time. 2. PCI of the circumflex and RCA can be attempted. Unfortunately, at this time air evacuation is not available and therefore attempted PCI is contraindicated at this time. 3. Guideline directed medical therapy for secondary prevention of coronary disease to include; low-dose aspirin, high intensity statin therapy, beta- sheila, plus or minus SHON inhibitor/ARB. Hemodynamics Rest Ao:: 88/61 mmHg Final Ao: 102/65 mmHg LV: Not performed Recommendations Recommendations: Medical Therapy and/or Counseling and PCI without planned CABG Radiation Exposure (mGy) 1246 mGy, fluoroscopy time 8.2 minutes Contrast (mls) 145 cc Anesthesia 2 mg Versed, 50 mcg fentanyl IV. 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 Any exceptions are noted below. [facility] Card Cath Procedure Codes Cardiac Catheterization Procedure 1: Cardiovascular Cath Procedures: 59539 Coronaries Procedure 2: Cardiovascular Cath Procedures: 44097 (Doppler) Pressure Wire (IFR 12196) PG Care Time/CCT Total # of Minutes Spent Total Time Spent with Patient: Total time spent is greater than 50% in coordination of care (as documented) at patient's floor/unit and/or counseling patient:
[2024-09-18 23:41] LABS: ANTI-Xa, UFH(UnfractionatedHep 0.35 IU/ml (0.3-0.7)
[2024-09-19] MEDS: NITROGLYCERIN SL 0.4 MG/TAB TAB SL STA (08:27)
[2024-09-19 09:10] LABS: ANTI-Xa, UFH(UnfractionatedHep 0.47 IU/ml (0.3-0.7)
--- NOTE | 2024-09-19 10:01 | Hospitalist Progress Note ---
Date of Service September 19, 2024 Assessment & Plan (1) Atypical chest pain: (2) Elevated troponin: (3) Elevated blood pressure reading: Plan Mr. Zapata is a 68-year-old male who is a current prisoner at [facility] with reportedly no medical history who is admitted for severe chest pain that developed the morning of 09/15. On admission patient's troponin was 23.7 pg/ml which peaked at 5,186 pg/ml. He was placed on IV heparin. he remained hemodynamically stable throughout hospital admission. Prior to availability for cardiac catheterization he did develop chest pain again, which improved with conservative management. On 09/18/2024 patient underwent cardiac catheterization by Dr. Baird. Final cardiac catheterization report is pending, but per discussion with primary washery engineer patient has a culprit circumflex lesion as well as 2 serial RCA lesions. PCI is felt to be high risk and therefore it is recommended patient be transferred to tertiary center, [facility]. Dr. Coulter sent cath images and echo and patient was accepted by Dr. Radha Dickson. of note prior to hospitalization patient is currently an inmate at [facility]. Prior to hospitalization he was not taking any prescription medications. While inpatient he was started on ASA 81 mg, atorvastatin 40 mg daily and metoprolol succinate 12.5 mg daily. His LDL was 109 and total cholesterol was 168. His A1c is at 5.7. Patient's IV heparin was resumed post cardiac catheterization. His right radial band has since been removed without evidence of hematoma. At time of discharge patient is in good spirits and hemodynamically stable. He is chest pain-free. Current Inpatient Medications Acetaminophen (Acetaminophen 325 Mg Tab) 650 mg PO Q4H PRN PRN Reason: Pain or Fever Stop: 10/15/24 14:42 Al Hydrox/Mg Hydrox/Simethicone (Aluminum/Magnesium Susp 30 Ml Udc) 15 ml PO Q4H PRN PRN Reason: Dyspepsia Stop: 10/15/24 14:42 Aspirin (Aspirin 81 Mg Ectab) 81 mg PO [facility] Stop: 10/16/24 08:59 Last Admin: 09/18/24 11:27 Dose: Not Given Atorvastatin Calcium (Atorvastatin 40 Mg Tab) 40 mg PO [facility] Stop: 10/16/24 08:59 Last Admin: 09/18/24 11:32 Dose: 40 mg Heparin Sodium/Dextrose (Heparin Sodium/Dextrose) 25,000 units in 500 mls @ 22 mls/hr IV .[id number] [facility]; Protocol Stop: 10/15/24 15:44 Last Titration: 09/18/24 09:06 Dose: 0 units/hr, 0 mls/hr Melatonin (Melatonin 3 Mg Tab) 6 mg PO HS PRN PRN Reason: Sleep Stop: 10/15/24 20:59 Metoprolol Succinate (Metoprolol Succ 25mg Ext Rel Tab) 12.5 mg PO QAM [facility] Stop: 10/18/24 14:59 Nitroglycerin (Nitroglycerin 2% Ointment 30gm Tube) 0.5 inch EXT Q6H [facility] Stop: 10/16/24 10:29 Last Admin: 09/18/24 11:32 Dose: 0.5 inch Ondansetron HCl (Ondansetron Inj 2 Mg/Ml 2 Ml Vial) 4 mg IV Q6H PRN PRN Reason: Nausea Stop: 10/15/24 14:42 Admission and Anticipated Discharge Date Admission Date: September 15, 2024 Supervising Physician Co-Signing Physician Notes I have seen and discussed the case with the collaborating advanced practitioner. I agree with the above PN.I have reviewed and confirmed the patients medical history, the findings on physical examination, and the patients diagnosis and treatment plan with Roland FORTUNE and agree with the information documented. NSTEMI, s/p cath, requires transfer patient will likely require complex multivessel pci No chest pain s/p [facility] agreed for plan for transfer I spent a total of 15 minutes coordinating, documenting, and providing care for this patient excluding time spent in the performance of separately billed services. All of the aforementioned completed outside of collaborating with the assigned advanced practitioner for a full treatment plan. I have reviewed the advanced practitioner's documentation, and I agree with, and take responsibility for the plan of care Subjective Pt reports 10/10 chest pain this morning per RN. He is resting comfortably. He denies diaphoresis, n/v, dizziness, lightheaded or SOB. He received 1 nitro which alleviated pain. He is awaiting transfer to [facility]. Review of Systems Review of Systems: All systems reviewed & are unremarkable except as noted in HPI & below Physical Exam Physical Exam: Gen: WD/WN, NAD, A&O x3, resting comfortably HEENT: Normocephalic, atraumatic, conjunctivae moist, sclerae anicteric, mucous membranes moist. Lung: no audible r/r/r Heart: RRR Extremities: No edema Skin: Warm, no rash, negative turgor. Results & Data Results & Data Vital Signs (Past 12 Hours) Vital Signs Temp Pulse Pulse Resp BP Pulse Ox O2 Del Method 09/19/24 09:06 74 09/19/24 07:52 36.7 C 73 18 119/69 96 Room Air 09/19/24 02:39 36.6 C 62 18 127/78 95 Room Air 09/18/24 23:00 79 09/18/24 22:56 36.7 C 89 18 144/89 H 95 Room Air Medications Administered Current Inpatient Medications Acetaminophen (Acetaminophen 325 Mg Tab) 650 mg PO Q4H PRN PRN Reason: Pain or Fever Stop: 10/15/24 14:42 Al Hydrox/Mg Hydrox/Simethicone (Aluminum/Magnesium Susp 30 Ml Udc) 15 ml PO Q4H PRN PRN Reason: Dyspepsia Stop: 10/15/24 14:42 Aspirin (Aspirin 81 Mg Ectab) 81 mg PO [facility] Stop: 10/16/24 08:59 Last Admin: 09/19/24 08:28 Dose: 81 mg Atorvastatin Calcium (Atorvastatin 40 Mg Tab) 40 mg PO [facility] Stop: 10/16/24 08:59 Last Admin: 09/19/24 08:28 Dose: 40 mg Heparin Sodium/Dextrose (Heparin Sodium/Dextrose) 25,000 units in 500 mls @ 22 mls/hr IV .[id number] [facility]; Protocol Stop: 10/15/24 15:44 Last Titration: 09/19/24 09:15 Dose: 1,100 units/hr, 22 mls/hr Melatonin (Melatonin 3 Mg Tab) 6 mg PO HS PRN PRN Reason: Sleep Stop: 10/15/24 20:59 Metoprolol Succinate (Metoprolol Succ 25mg Ext Rel Tab) 12.5 mg PO [facility] Stop: 10/18/24 14:59 Last Admin: 09/19/24 08:27 Dose: 12.5 mg Nitroglycerin (Nitroglycerin 2% Ointment 30gm Tube) 0.5 inch EXT Q6H [facility] Stop: 10/16/24 10:29 Last Admin: 09/19/24 04:50 Dose: 0.5 inch Ondansetron HCl (Ondansetron Inj 2 Mg/Ml 2 Ml Vial) 4 mg IV Q6H PRN PRN Reason: Nausea Stop: 10/15/24 14:42
--- NOTE | 2024-09-19 10:08 | Cardiology Progress Note ---
Date of Service September 19, 2024 Assessment & Plan (1) NSTEMI (non-ST elevated myocardial infarction): Plan 68-year-old male without prior history of cardiac disease who developed chest pain substernally at rest. Found to have a NSTEMI. Continue ASA , metoprolol, atorvastatin, topical nitrates. UF heparin infusion. Patient felt to have a culprit high-grade 70-80% stenosis of the proximal circumflex coronary artery and the mid right coronary artery has serial high- grade stenoses in the range of 70 to 80% at the mid segment of the vessel. The left main and left anterior sending are felt to not have obstructive disease, IFR measurement of the proximal LAD was 0.95. After reviewing the case, it was felt most appropriate to consider transfer to tertiary center for consideration of technically complex high risk multivessel PCI. Patient agreeable. He is accepted for transfer to [facility], pending bed availability and transportation availability. I called and spoke to the transfer center at [facility] again this am. NPO for now, in case it is feasible to have PCI today. Admission and Anticipated Discharge Date Admission Date: September 15, 2024 Subjective Patient seen in cardiology follow up. He was comfortable at that time. Had chest pain prior and received a single SL nitroglycerin. EKG this am revealed stable findings of ongoing non specific T wave flattening. Physical Exam Constitutional: WD/WN, vitals as above Eyes: PERRL, conjunctivae normal, anicteric sclerae Neck: trachea midline, no thyromegaly Respiratory: normal respiratory effort, lungs clear to auscultation Cardiovascular: RRR, no murmur, no edema Gastrointestinal (Abdomen): normal bowel sounds, soft, nontender, no hepatosplenomegaly Skin: no rashes, warm and dry Neurologic: PERRL, EOMI, accommodation nl, no face palsy, no dysarthria Results & Data Vital Signs (Past 12 Hours) Vital Signs Temp Pulse Pulse Resp BP Pulse Ox O2 Del Method 09/19/24 09:06 74 09/19/24 07:52 36.7 C 73 18 119/69 96 Room Air 09/19/24 02:39 36.6 C 62 18 127/78 95 Room Air 09/18/24 23:00 79 09/18/24 22:56 36.7 C 89 18 144/89 H 95 Room Air
[2024-09-19 11:43] LABS: BUN Creatinine Ratio 10.7 (10-20); Calcium 9.4 mg/dl (8.6-10.3); Potassium 3.7 mmol/L (3.5-5.1)
--- NOTE | 2024-09-19 12:51 | Communication Note ---
Date of Service: September 19, 2024 Pt still awaiting a bed at [facility]. Ordered a diet for now. NPO after MN.
--- NOTE | 2024-09-19 13:36 | Electrocardiogram Report ---
Test Reason : Blood Pressure : */* mmHG Vent. Rate : 80 BPM Atrial Rate : 80 BPM P-R Int : 154 ms QRS Dur : 74 ms QT Int : 406 ms P-R-T Axes : 75 40 81 degrees QTcB Int : 468 ms Poor data quality, interpretation may be adversely affected Normal sinus rhythm Diffuse Minor Nonspecific T wave abnormality Abnormal ECG When compared with ECG of 16-Sep-2024 15:24, No significant change was found Confirmed by Alejandro Gillespie ([id number]) on 09/19/2024 1:36:02 PM Referred By: [facility] Confirmed By: Alejandro Gillespie
--- NOTE | 2024-09-19 13:40 | Electrocardiogram Report ---
Test Reason : Blood Pressure : */* mmHG Vent. Rate : 77 BPM Atrial Rate : 77 BPM P-R Int : 162 ms QRS Dur : 80 ms QT Int : 416 ms P-R-T Axes : 67 39 65 degrees QTcB Int : 470 ms Normal sinus rhythm Diffuse Minor Nonspecific T wave abnormality Abnormal ECG When compared with ECG of 18-Sep-2024 13:10, No significant change was found Confirmed by Alejandro Gillespie ([id number]) on 09/19/2024 1:40:04 PM Referred By: [facility] Confirmed By: Alejandro Gillespie
[2024-09-20 07:57] VITALS: RESP 18
[2024-09-20 08:44] LABS: ANTI-Xa, UFH(UnfractionatedHep 0.49 IU/ml (0.3-0.7)
--- NOTE | 2024-09-20 10:39 | Cardiology Progress Note ---
Date of Service September 20, 2024 Assessment & Plan (1) NSTEMI (non-ST elevated myocardial infarction): Plan 68-year-old male without prior history of cardiac disease who developed chest pain substernally at rest. Found to have a NSTEMI. Continue ASA , metoprolol, atorvastatin, topical nitrates. UF heparin infusion. Patient felt to have a culprit high-grade 70-80% stenosis of the proximal circumflex coronary artery and the mid right coronary artery has serial high- grade stenoses in the range of 70 to 80% at the mid segment of the vessel. The left main and left anterior sending are felt to not have obstructive disease, IFR measurement of the proximal LAD was 0.95. After reviewing the case, it was felt most appropriate to consider transfer to tertiary center for consideration of technically complex high risk multivessel PCI. Patient agreeable. He is accepted for [place] [facility] availability and transportation availability. NPO for now, in case it is feasible to have PCI today. Admission and Anticipated Discharge Date Admission Date: September 15, 2024 Subjective Patient seen in cardiology follow up. No chest pain overnight. Heparin infusing. Telemetry reveals SR in the 60s to 80s. Review of Systems Review of Systems: All systems reviewed & are unremarkable except as noted in HPI & below Physical Exam Constitutional: WD/WN, vitals as above Eyes: PERRL, conjunctivae normal, anicteric sclerae Neck: trachea midline, no thyromegaly Respiratory: normal respiratory effort, lungs clear to auscultation Cardiovascular: RRR, no murmur, no edema right radial procedure site , clean , dry and intact , no hematoma Gastrointestinal (Abdomen): normal bowel sounds, soft, nontender, no hepatosplenomegaly Skin: no rashes, warm and dry Neurologic: PERRL, EOMI, accommodation nl, no face palsy, no dysarthria Results & Data Vital Signs (Past 12 Hours) Vital Signs Temp Pulse Pulse Resp BP Pulse Ox O2 Del Method 09/20/24 07:57 36.7 C 74 18 129/79 95 Room Air 09/20/24 07:25 69 09/20/24 02:45 36.5 C 60 16 109/68 97 Room Air 09/19/24 23:14 87 09/19/24 23:01 36.5 C 58 L 18 124/72 95 Room Air Diagnostic Findings Comprehensive Metabolic Panel 09/19/24 Range/Units 08:17 Sodium 140 (136-145) mmol/L Potassium 3.7 (3.5-5.1) mmol/L Chloride 106 (98-107) mmol/L Carbon Dioxide 26 (21-32) mmol/L BUN 13 (6-23) mg/dl Creatinine 1.21 (0.6-1.4) mg/dl Glucose 126 H (70-99(Fasting)) mg/dl Calcium 9.4 (8.6-10.3) mg/dl Intake and Output 09/19/24 09/20/24 09/20/24 22:59 06:59 14:59 Intake Total 290.567 / 1065.700 200 / 1065.700 303.233 / 303.233 Output Total 300 / 301 Balance 289.567 / 764.700 -100 / 764.700 303.233 / 303.233 Intake: IV 90.567 / 425.700 303.233 / 303.233 Heparin Sodium/Dextrose 25,000 90.567 / 425.700 303.233 / 303.233 units In 500 ml @ 1,100 UNITS/ HR 22 mls/hr IV .[id number] [facility] Rx #:[id number] Oral 200 / 640 200 / 640 Output: Urine 300 / 301 Other: Weight 84.2 kg Weight Measurement Method Built in [facility]
[2024-09-20 11:07] VITALS: BP 116/71; TEMP 97.9; O2SAT 93
[2024-09-20 12:31] VITALS: PULSE 59
--- NOTE | 2024-09-20 12:42 | Discharge Summary ---
Date of Service September 20, 2024 Admission HPI Per Admitting Provider This is a 68-year-old male who is a current prisoner at [facility]. He reports this morning at 8 AM he was sitting watching TV whenever he developed severe precordial chest pain. Pain was initially 10 out of 10. He described it as, "an elephant on my chest." He denied any other associated symptoms including diaphoresis, shortness of breath, palpitations, nausea, vomiting, lightheadedness or dizziness. He denies ever feeling something similar in the past. Nothing seem to make the pain worse including deep breathing, lying down or leaning forward or touch. He denies any recent heavy lifting. He typically walks 2 miles daily on a flat surface. He denies developing any substernal chest pain or shortness of breath with this. He denies any history of HTN, HLD, T2DM or known family history of CAD. He is unsure of his family's past medical history. He denies any recent illness, fever, chills, sweats or change in his bowel or urinary habits. He denies ever having a prior history of GERD. He has a prior hx of alcohol use and cocaine use in the 80s. In ED patient remained hemodynamically stable. He reports his chest pain has significantly improved and is currently a 4 out of 10. His CBC and CMP was generally unremarkable. His initial troponin is 23.7. His EKG was without acute ischemic change. He was ordered full dose aspirin to be given in ED. Admission Exam Per Admitting Provider Constitutional: WD/WN, vitals as above, NAD, sitting up in bed, pleasant, conversing easily Head: Normocephalic, Atraumatic Eyes: PERRL, conjunctivae normal, anicteric sclerae ENMT: external ear and nose normal, oropharynx normal Neck: trachea midline, no thyromegaly normal visual inspection Respiratory: normal respiratory effort, lungs clear to auscultation, no wheeze, rales, rhonchi. Normal insp/exp effort, no accessory muscle use Cardiovascular: RRR, no murmur, no edema Vessels: no JVD or carotid bruit Chest: normal inspection of chest Abdomen: normal bowel sounds, soft, nontender, no hepatosplenomegaly Musculoskeletal: no cyanosis or clubbing, extremities motor strength 5/5 Skin: no rashes, warm and dry normal turgor Neurologic: PERRL, EOMI, accommodation nl, no face palsy, no dysarthria CN's II-XI intact bilaterally and moves all extremities Psychiatric: A+Ox3, euthymic affect Principal Diagnosis NSTEMI Discharge Exam Neuro: AAOx4, PERRLA, no aphagia, memory changes, CNII-XII grossly intact HEENT: head normocephalic, moist mucus membranes CV: S1/S2, (-) M/G/R, (-) edema, cap refill < 3 seconds Resp: Lungs CTA in all cole. On RA GI: Abdomen S/NT/ND, Ax4 bowel sounds, (-) CVA tenderness Musculoskeletal: 5/5 B/L UE strength, 5/5 B/L LE strength. No gait disturbance Skin: (-) rashes , (-) erythema. Psych: euthymic mood Discharge Data Allergies Allergy/AdvReac Type Severity Reaction Status Date / Time No Known Allergies Allergy Verified 08/11/22 07:58 Consultations 09/15/24 13:43 ED Decision to Admit Stat 09/15/24 15:21 Consult Cardiology Routine 09/18/24 18:44 Burn CD for patient Stat Procedures Performed Operation Date: 09/18/24 10:00 Actual Procedures p Cineradiography w/Routine Exam - Zack Webb MD, PhD p Cath, Coronaries ONLY (no LV) - Zack Webb MD, PhD Ordered Studies 09/15/24 14:29 CT chest diagnostic wo con Stat CT OF THE CHEST WITHOUT IV CONTRAST CLINICAL HISTORY: Chest pain. COMPARISON STUDY: Chest radiograph performed earlier today. CT DOSE: 499.66 mGy.cm TECHNIQUE: Axial images of the chest were obtained without IV contrast. Images were reviewed in the axial, sagittal, and coronal planes. IV contrast was not administered for this examination. Automated exposure control was utilized for the study. A dose lowering technique was utilized adhering to the principles of ALARA. FINDINGS: No enlarged axillary, mediastinal or hilar lymph nodes are present. The size of the heart is normal. There is no pericardial effusion. There is moderate coronary artery calcification. The left suprahilar abnormality on chest radiograph performed earlier today was artifactual. This is due to pulmonary vessels. Moderate elevation of the left hemidiaphragm is noted. Associated subpleural left lower lobe opacity represents atelectasis. No consolidation is present to suggest pneumonia. There are no pulmonary nodules. There is no pneumothorax or pleural effusion. No fractures are identified within the bony thorax. Visualized portions of the upper abdomen are unremarkable on unenhanced exam. IMPRESSION: 1. No acute intrathoracic findings. 2. Moderate elevation of the left hemidiaphragm. Associated subpleural left lower lobe opacity represents atelectasis. 3. The left suprahilar abnormality on chest radiograph performed earlier today was artifactual. ACT 112: Negative or not required by law. Electronically signed by: Sammy Avendano M.D. 09/15/2024 3:57 PM 09/18/24 06:44 Cath Imgs for PACS use only Stat Hospital Course (1) Atypical chest pain: (2) Elevated troponin: (3) Elevated blood pressure reading: Plan Mr. Norman is a 68-year-old male who is a current prisoner at [facility] with reportedly no medical history who is admitted for severe chest pain that developed the morning of 09/15. On admission patient's troponin was 23.7 pg/ml which peaked at 5,186 pg/ml. He was placed on IV heparin. He remained hemodynamically stable throughout hospital admission. Prior to availability for cardiac catheterization he did develop chest pain again, which improved with conservative management. On 09/18/2024 patient underwent cardiac catheterization by Dr. Baird. Final cardiac catheterization indicates 70-80% occlusion circumflex and RCA. PCI is felt to be high risk and therefore it is recommended patient be transferred to tertiary center, [facility] [place]. Coulter sent cath images and echo and patient was accepted by Dr. Radha Dickson. Patient is currently an inmate at [facility]. Prior to hospitalization he was not taking any prescription medications. While inpatient he was started on ASA 81 mg, atorvastatin 40 mg daily and metoprolol succinate 12.5 mg daily. His LDL was 109 and total cholesterol was 168. His A1c is at 5.7. Patient's IV heparin was resumed post cardiac catheterization. His right radial band has since been removed without evidence of hematoma. At time of discharge patient is in good spirits and hemodynamically stable. He is chest pain-free and stable upon discharge. Total Time Total Time Spent Total Time Spent (In Minutes): I spent a total of 56 minutes coordinating, documenting, and providing care for this patient excluding time spent in the performance of separately billed services. All of the aforementioned completed while collaborating with the assigned attending physician for a full treatment plan. Please see their addendum for further details. Discharge Plan Discharge Items Patient Disposition: Transfer Acute Care Hospital Reason For Visit: CHEST PAIN Discharge Diagnosis: Chest pain NSTEMI Multivessel CAD Condition on Discharge: Good Activity: Per Instructions section Non-emergency contact: Primary Care Provider and Blindmaker Call non-emergency contact if: you have any medication questions, your symptoms worsen, your pain is not controlled, your pain is worsening and your pain is concerning for you Follow-up/Referrals: Michael GUTIERREZ [Primary Care Provider] - Diet: Heart Healthy Addtl Attending Provider Instructions: Current Inpatient Medications Acetaminophen (Acetaminophen 325 Mg Tab) 650 mg PO Q4H PRN PRN Reason: Pain or Fever Stop: 10/15/24 14:42 Al Hydrox/Mg Hydrox/Simethicone (Aluminum/Magnesium Susp 30 Ml Udc) 15 ml PO Q4H PRN PRN Reason: Dyspepsia Stop: 10/15/24 14:42 Aspirin (Aspirin 81 Mg Ectab) 81 mg PO [facility] Stop: 10/16/24 08:59 Last Admin: 09/18/24 11:27 Dose: Not Given Atorvastatin Calcium (Atorvastatin 40 Mg Tab) 40 mg PO [facility] Stop: 10/16/24 08:59 Last Admin: 09/18/24 11:32 Dose: 40 mg Heparin Sodium/Dextrose (Heparin Sodium/Dextrose) 25,000 units in 500 mls @ 22 mls/hr IV .[id number] [facility]; Protocol Stop: 10/15/24 15:44 Last Titration: 09/18/24 09:06 Dose: 0 units/hr, 0 mls/hr Melatonin (Melatonin 3 Mg Tab) 6 mg PO HS PRN PRN Reason: Sleep Stop: 10/15/24 20:59 Metoprolol Succinate (Metoprolol Succ 25mg Ext Rel Tab) 12.5 mg PO [facility] Stop: 10/18/24 14:59 Nitroglycerin (Nitroglycerin 2% Ointment 30gm Tube) 0.5 inch EXT Q6H [facility] Stop: 10/16/24 10:29 Last Admin: 09/18/24 11:32 Dose: 0.5 inch Ondansetron HCl (Ondansetron Inj 2 Mg/Ml 2 Ml Vial) 4 mg IV Q6H PRN PRN Reason: Nausea Stop: 10/15/24 14:42 Addtl [place] Tier Provider Instructions: Mr. Norman, You presented to the [facility] with complaints of chest pain that started and you were found to have a NSTEMI (Non ST elevation Myocardial Infarcation). You were evaluated by Cardiology and were found to have a high grade stenosis (narrowing) of two of your heart arteries (circumflex and mid right coronary) After further discussion, your care team felt that it would be best to transfer you to [facility] for further evaluation. You were started on a Heparin infusion and given Aspirin and Metoprolol with topical nitrates as well. Your accepting team physician will be Dr. Radha Dickson. You were evaluated prior to your discharge and were stable for transfer without chest pain or ectopy on monitor. ACTIVITY RECOMMENDATIONS: Excess manipulation of the wrist should be avoided for the next 24-48 hours. * No lifting over 2 pounds (approximately a 1/2 gallon of milk) with the utilized arm for 24 hours. * No strenuous activity such as bowling or tennis for 3 days. * Keep the site of the procedure covered with a bandage for 24 hours. *You may shower the day after the procedure. Do not take a tub bath or submerge the puncture site in water for the next 3 days. *Do not operate any motorized equipment for 3 days. SPECIAL CARE INSTRUCTIONS: The site may be slightly bruised and sore following your procedure. Should any of the following occur, contact the Dr. who performed your procedure. 1. Redness/inflammation, swelling, chills, or fever, or colored drainage at procedure site within 3-7 days after your procedure. 2. Coldness, discoloration, ongoing numbness, severe pain, or swelling. Expect mild tingling of hand and tenderness at the puncture site for up to three days. If this persists beyond three days, or other symptoms develop, notify the Dr. who performed your procedure. BLEEDING: If the procedure site on your wrist begins to bleed, do not panic 1. Place 1 or 2 fingers firmly just slightly above the insertion site to stop the bleeding. You may be able to feel your pulse as you hold pressure. 2. Lift your finger after 5 minutes to see if the bleeding has stopped. 3. Once the bleeding has stopped, gently wipe the wrist area clean with a bandage. * If the bleeding from your wrist does not stop after 10 minutes, or if there is a large amount of bleeding or spurting, call 911 ([address] drive yourself to the hospital). SKIN IRRITATION: * You may experience some redness and/or swelling in the area where radiation was administered. If any skin irritation occurs, please contact your family physician. FOLLOW UP VISIT: Keep any scheduled doctor appointments. Pending Studies at Discharge: No Stand-Alone Forms: My [facility] [place] [employer] Skilled Items Patient informed of condition?: Yes DNR: No Discharge Level of Care: Other Communicable Disease: No Discharge Prognosis: Stable Lines: None Urinary Catheter: No Medications and DC Order Prescriptions: New atorvastatin 40 mg Tablet 40 mg PO QAM Qty: 1 0RF aspirin 81 mg Tablet,Delayed Release (Dr/Ec) 81 mg PO QAM Qty: 1 0RF Nitro-Bid 2 % Ointment 0.5 inch EXT Q6H Qty: 30 0RF metoprolol succinate 25 mg Tablet Extended Release 24 Hr 12.5 mg PO QAM Qty: 30 0RF Discharge Orders: Discharge Order (Routine); Ordered 09/18/24 Ordered By: Susan Watkins Admission Data Admit Date/Time: 09/15/24 14:07 Attending Provider: Braden Soni Admit Provider: Isael Oakley Primary Care Provider: Michael GUTIERREZ Other Providers: Pierre Crocker; Zack Coulter; Zack Webb Other Interventions: Discharge Summary Assessment (RN) Last Done: 09/20/24 12:29 Supervising Physician Co-Signing Physician Notes delayed entry date of service noted above Attending Addendum: Case reviewed with the advanced practitioner. I have personally performed a history and physical examination on the patient. I have reviewed the advanced practitioner's documentation on the date of service referenced in note, and I agree with, and take responsibility for the plan of care. please refer to her notes for full details patient seen and examined, records reviewed by myself as well Braden Soni MD
== END 2024-09-20 13:48 | disposition short-term general hospital (02) | DRG 282 ==
LOC: ED 11:28 → 2S 14:07 → SUATTDRO 14:07 → 2S 14:23
PROC: CLB.CCO (2024-09-18 10:00)